=== PATIENT | female | born 2000 | race Caucasian/White ===

== ENCOUNTER 2024-05-06 16:32 | Emergency (ER) | payer OTHER, SELFPAY ==
[2024-05-06 16:35] VITALS: BP 130/82; PULSE 92; TEMP 36.9; O2SAT 98; BMI 41.4
--- NOTE | 2024-05-06 16:46 | ED.FEMALEGU1 ---
HPI - Female Genitourinary General Chief complaint: Urogenital-Female Stated complaint: UTI Time Seen by Provider: 05/06/24 16:38 Source: patient Mode of arrival: walk-in History of Present Illness HPI Narrative: 23-year-old female presents to the emergency department for dysuria and frequency. She is concerned she has a UTI, she has had them before. No back pain fever or vomiting. Symptoms started within the last day or 2. Related Data Home Medications ?Medication ?Instructions ?Recorded ?Confirmed testosterone cypionate 200 mg/mL 50 mg IM Q7D 05/06/24 05/06/24 intramuscular oil Previous Rx's ?Medication ?Instructions ?Recorded nitrofurantoin 100 mg PO BID 7 days #14 caps 05/06/24 monohydrate/macrocrystals 100 mg capsule (Macrobid) Allergies Allergy/AdvReac Type Severity Reaction Status Date / Time No Known Drug Allergies Allergy Verified 05/06/24 16:38 Review of Systems ROS Narrative A ten point review of systems is negative except as noted above. Exam Narrative Exam Narrative: Nurses note and vital signs reviewed and patient is not hypoxic. General: The patient appears well and in no apparent distress. Patient is resting comfortably on cart. Skin: Warm, dry, no pallor noted. There is no rash noted. Head: Normocephalic, atraumatic Eye: Normal conjunctiva, no drainage Ears, Nose, Mouth, and Throat: oral mucosa is moist. Nares patent. Cardiovascular: Regular Rate and Rhythm Respiratory: Patient is in no distress, no accessory muscle use, lungs are clear to auscultation, no wheezing, rales or rhonchi Back: non-tender, no CVA tenderness bilaterally to percussion. GI: Nontender Musculoskeletal: No joint swelling Neurological: Awake and alert Psychiatric: Cooperative Constitutional Vital Signs, click to edit/add: Last Vital Signs Temp 98.5 F 05/06/24 16:35 Pulse 92 H 05/06/24 16:35 Resp 16 05/06/24 16:35 BP 130/82 05/06/24 16:35 Pulse Ox 98 05/06/24 16:35 O2 Del Method Room Air 05/06/24 16:35 Course Vital Signs Vital signs: Vital Signs Temperature 98.5 F 05/06/24 16:35 Pulse Rate 92 H 05/06/24 16:35 Respiratory Rate 16 05/06/24 16:35 Blood Pressure 130/82 05/06/24 16:35 Pulse Oximetry 98 05/06/24 16:35 Oxygen Delivery Method Room Air 05/06/24 16:35 Temperature 98.5 F 05/06/24 16:35 Pulse Rate 92 H 05/06/24 16:35 Respiratory Rate 16 05/06/24 16:35 Blood Pressure 130/82 05/06/24 16:35 Pulse Oximetry 98 05/06/24 16:35 Oxygen Delivery Method Room Air 05/06/24 16:35 MDM - Female Genitourinary MDM Narrative Medical decision making narrative: UA shows UTI and she was started on Macrobid here and prescribed same. Treatment diagnosis and follow-up were discussed with the patient. Differential Diagnosis Differential diagnosis: Likely urinary tract infection and cystitis Lab Data Attestation: I reviewed the patient's lab results. Labs: Lab Results 05/06/24 Range/Units 16:40 Urine Color Yellow (YELLOW) Urine Clarity Sl cloudy (CLEAR) Urine pH 6.0 (5.0-9.0) Ur Specific [place] 1.020 (1.005-1.025) Urine Protein Trace (NEG/TRACE) mg/dL Urine Glucose (UA) Negative (NEGATIVE) mg/dL Urine Ketones Negative (NEGATIVE) mg/dL Urine Occult Blood Large A (NEGATIVE) Urine Nitrite Positive A (NEGATIVE) Urine Bilirubin Negative (NEGATIVE) Urine Urobilinogen 0.2 (0.2-1.0) EU/dL Ur Leukocyte Esterase Moderate A (NEGATIVE) Urine RBC 2-5 A (0-2) #/HPF Urine WBC 50-75 A (NONE SEEN) #/HPF Ur Squamous Epith Cells Few A (NONE/RARE) #/LPF Urine Crystals None seen (None Seen) #/HPF Urine Bacteria Large A (NONE SEEN) #/HPF Urine Casts None seen (NONE SEEN) #/LPF Urine Mucus Trace A (NONE SEEN) Ur Culture Indicated? Yes Urine HCG, Qual Negative (NEGATIVE) Discharge Plan Discharge Stand Alone Forms: Portal Instructions Chief Complaint: Urogenital-Female Clinical Impression: Urinary tract infection Patient Disposition: Home, Self-Care Prescriptions / Home Meds: New nitrofurantoin monohyd/m-cryst [Macrobid] 100 mg capsule 100 mg PO BID 7 Days Qty: 14 0RF Rx Instructions: must administer with a meal/food No Action testosterone cypionate 200 mg/mL oil 50 mg IM Q7D Print Language: [place] Instructions: Urinary Tract Infection in Women (ED) Referrals: Lindsey Hernandez NP [Primary Care Provider] - 1 week
[2024-05-06 17:24] LABS: Bilirubin Urine NEGATIVE (NEGATIVE); Blood Urine LARGE (NEGATIVE); Clarity Urine SL CLOUDY (CLEAR); Color Urine YELLOW (YELLOW); Glucose Urine UA NEGATIVE (NEGATIVE); Ketones Urine NEGATIVE (NEGATIVE); Leukocyte Esterase Urine MODERATE (NEGATIVE); Nitrite Urine POSITIVE (NEGATIVE); Protein Urine TRACE mg/dL (NEG/TRACE); Urobilinogen Urine 0.2 EU/dL (0.2-1.0)
[2024-05-06 17:30] LABS: HCG Qualitative Urine* NEGATIVE (NEGATIVE); Internal Control Within Normal Limits
[2024-05-06 17:34] LABS: WBC Urine 50-75 #/HPF (NONE SEEN)
[2024-05-06 17:35] LABS: Bacteria Urine LARGE #/HPF (NONE SEEN); Cast Seen? NONE SEEN #/LPF (NONE SEEN); Crystals Seen? None Seen #/HPF (None Seen); Mucus Urine TRACE (NONE SEEN); Squamous Epithelial Cell Urine FEW #/LPF (NONE/RARE); Urine Culture Indicated YES
[2024-05-06] MEDS: NITROFURANTOIN MONOHYD/MAC-CRST 100 MG CAPSULE PO (17:43)
[2024-05-06 17:47] VITALS: BP 120/58; PULSE 87; O2SAT 98
== END 2024-05-06 17:49 | disposition home or self-care (01) ==
PROVIDERS: Emergency Provider Emergency Medicine; PCP Nurse Practitioner Family
DX: N39.0 Urinary tract infection, site not specified (principal)
CPT/HCPCS: 81001; 84703; 87086; 99283

== ENCOUNTER 2024-11-01 12:02 | Outpatient (OUT) | payer OTHER, SELFPAY ==
--- OUTSIDE RECORDS SUMMARY | 2024-11-01 12:12 | XMS_ITS | CCD ---
Author Organization [facility] Care Team Providers Care Contract Mail Carrier Name Role Phone NO FAMILY, PHYSICIAN Primary Care Provider Unava ilable DO Lc Prajapati Emergency Provider [phone] MD Jenny Guajardo Admit Provider [phone] MD Jenny Guajardo Attending Provider MD Luis Plok Admit Provider [phone] MD Luis Polk Attending Provider JAMEL BAILEY Attending Unavailable JAMEL BAILEY Admitting Unavailable MARKER, DR SUTTON Consulting Unavailable JAMEL BAILEY Consulting Unavailable DAXA KING Consulting Unavailable MARINO PRITCHETT Admitting Unavailable DANAY NIEVES Consulting Unavailable DR CRISTAL MORGAN Primary Care Unavailable MARINO PRITCHETT Attending Unavailable Elizabeth Drew Attending Unavailable Elizabeth Drew Attending Unavailable Elizabeth Drew Attending Unavailable Elizabeth Drew Primary Care Physician [phone] Felicitas Osman MD Primary Care Provider Ralph - UC, PRABHJOT Barragan Attending Provider RalphPRABHJOT Attending Provider [phone] NO FAMILY, PHYSICIAN Primary Care Provider Unava ilable Suzanne, HOT ROLL INSPECTOR-BC Jasmin E Emergency Provider Bullimore Jasmin E Admitting Unavailable Bullimore Jasmin E Attending Unavailable NO FAMILY, PHYSICIAN Primary Care Unavailable Samra Rosas Admitting Unavailable Samra Rosas Attending Unavailable PROVIDER, UNKNOWN Admitting Unavailable FELICITAS OSMAN Primary Care Unavailable FELICITAS OSMAN Attending Unavailable PROVIDER, UNKNOWN Admitting Unavailable FELICITAS OSMAN Primary Care Unavailable FELICITAS OSMAN Attending Unavailable GLENYS Drew Attending Unavailable Medications Current Medications Medication Drug Class(es) Dates Sig (Normalized) Sig (Original) cephalexin 500 mg oral capsule (3 sources) Cephalosporin Antibacterial Start: 05-20-2024 End: 07-18-2024 take 500 mg by mouth twice daily Cephalexin Active 500 MG PO Twice daily 16 04July 18, 2024 5:27pm isopropyl alcohol 0.7 ml/ml medicated pad (1 source) Start: 03-30-2024 alcohol swabs 70 % pad Indications: Gender incongruence , Endocrine disorder Use as needed to clean skin surface. 100 Each 3 03/30/2024 Active metroNIDAZOLE 500 mg oral tablet (2 sources) Nitroimidazole Antimicrobial Start: 05-20-2024 take 500 mg by mouth twice daily Metronidazole Active 500 MG PO Twice daily 16 04May 20, 2024 12:00am Needle, Disp, 18G X 1 MISC (1 source) Start: 03-30-2024 End: 03-30-2025 Needle, Disp, 18G X 1 MISC Indications: Gender incongruence , Endocrine disorder 1 Each once weekly. 100 Each 3 03/30/2024 03/30/2025 Active Needle, Disp, 25G X 1 MISC (1 source) Start: 03-30-2024 Needle, Disp, 25G X 1 MISC Indications: Gender incongruence , Endocrine disorder 1 Each once weekly. 100 Each 3 03/30/2024 Active Acworth & Syringes (Easy Touch Syringe Barrel 1ml) MISC (1 source) Start: 03-30-2024 Acworth & Syringes (Easy Touch Syringe Barrel 1ml) MISC Indications: Gender incongruence , Endocrine disorder 1 Each once weekly. 100 Each 3 03/30/2024 Active phentermine hydrochloride 37.5 mg oral tablet (2 sources) Sympathomimetic Amine Anorectic Start: 03-14-2024 take 1 tablet by mouth once daily Phentermine HCl 37.5 MG TABS Take 1 Tablet by mouth daily. 03/14/2024 Active Start: 03-02-2024 take 1 tablet by armando th once daily phentermine 37.5 mg Tab 37.5 mg = 1 tab(s), Oral, Daily, # 30 tab(s), Refills(s) 0, Pharmacy: [id number], 151, cm, 03/02/24 10:03:00 EDT, Height/Length Dosing, 93.8, kg, 03/02/24 10:03:00 EDT, Weight Dosing Start Date: 03/02/24 Status: Ordered sharps container (1 source) Start: 03-30-2024 sharps contain er Indications: Gender incongruence , Endocrine disorder For used syringes, needles, and glass medicine bottles. 1 Each 3 03/30/2024 Active 1 ml testosterone cypionate 200 mg/ml injection (1 source) Androgen Start: 03-30-2024 End: 03-30-2025 testosterone cypionate (DEPO-TESTOSTERONE) 200 MG/ML injection Indications: Gender incongruence , Endocrine disorder Inject 0.25 mL into the muscle once weekly. Please throw away the remainder after opening. 12 mL 3 03/30/2024 03/30/2025 Active Completed/Discontinued Medications Medication Drug Class(es) Dates Sig (Normalized) Sig (Original) ARIPiprazole 30 mg oral tablet (17 sources) Atypical Antipsychotic Start: 04-10-2022 End: 05-20-2024 take 1 tablet by mouth once daily Aripiprazole (Abilify) 30 mg Tablet Discontinued 30 MG PO Daily June 28, 2022 10:44am May 20, 2024 10:05am Start: 01-23-2021 End: 04-10-2022 take 5 mg by mouth once daily Aripiprazole Discontinue d 5 MG PO Daily January 23, 2021 12:00am April 10, 2022 7:31pm busPIRone hydrochloride 5 mg oral tablet (11 sources) Start: 05-07-2022 End: 05-20-2024 take 5 mg by mouth twice daily Buspirone Discontinued 5 MG PO Twice daily 60 June 28, 2022 10:44am May 20, 2024 10:05am cariprazine 3 mg oral capsule (4 sources) Atypical Antipsychotic Start: 05-07-2022 End: 05-13-2022 take 1 capsule by mouth once daily Cariprazine (Vraylar) 3 mg Capsule Discontinued 3 MG PO Daily May 07, 2022 12:00am May 13, 2022 11:41am escitalopram 5 mg oral tablet (7 sources) Serotonin Reuptake Inhibitor Start: 05-13-2022 End: 05-20-2024 take 5 mg by mouth once daily in the morning Escitalopram Oxalate Discontinued 5 MG PO Every morning June 28, 2022 10:44am May 20, 2024 10:05am hydrOXYzine pamoate 50 mg oral capsule (14 sources) Antihistamine Start: 05-13-2022 End: 06-25-2022 take 50 mg by mouth every six hours Hydroxyzine Pamoate Discontinued 50 MG PO Q6H 60 May 13, 2022 12:00am June 25, 2022 12:39am Start: 01-01-2021 End: 04-10-2022 take 50 mg by mouth every six hours Hydroxyzine Pamoate Discontinued 50 MG PO Q6H 60 January 23, 2021 11:10am April 10, 2022 7:31pm traZODone hydrochloride 50 mg oral tablet (14 sources) Serotonin Reuptake Inhibitor Start: 05-13-2022 End: 06-25-2022 take 50 mg by mouth once daily at bedtime Trazodone Discontinued 50 MG PO Daily at bedtime May 13, 2022 12:00am June 25, 2022 12:39am Start: 01-01-2021 End: 04-10-2022 take 50 mg by mouth once daily at bedtime Trazodone Discontinued 50 MG PO Daily at bedtime January 23, 2021 11:10am April 10, 2022 7:31pm 24 hr venlafaxine 150 mg extended release oral capsule (10 sources) Serotonin and Norepinephrine Reuptake Inhibitor Start: 01-23-2021 End: 04-10-2022 take 150 mg by mouth once daily Venlafaxine Discontinued 150 MG PO Daily January 23, 2021 12:00am April 10, 2022 7:31pm Start: 01-01-2021 End: 01-23-2021 take 75 mg by mouth once daily Venlafaxine Discontinue d 75 MG PO Daily 15 January 01, 2021 12:00am January 23, 2021 11:11am Problems Problem Classification Problem Date Documented Date Episodic/Chronic Abdominal pain (1 source) Pelvic and perineal pain; Translations: [Pelvic and perineal pain] Onset: 07-18-2024 Episodic Anxiety disorders (6 sources) Posttraumatic stress disorder; Translations: [Post-traumatic stress disorder, unspecified] Onset: 05-08-2022 01-21-2021 Chronic Conditions associated with dizziness or vertigo (8 sources) Lightheadedness; Translations: [Dizziness and giddiness] 04-10-2022 Episodic Genitourinary symptoms and ill-defined conditions (3 sources) Dysuria; Translations: [Dysuria] Onset: 07-18-2024 05-20-2024 Episodic Immunizations and screening for infectious disease (1 source) Encounter for immunization; Translations: [ENCOUNTER FOR IMMUNIZATION] Onset: 05-08-2022 Episodic Miscellaneous mental health disorders (3 sources) Transsexualism; Translations: [Gender dysphoria] Onset: 05-08-2022 02-17-2024 Chronic Mood disorders (17 sources) Recurrent major depression; Translations: [Major depressive disorder, recurrent, unspecified] Onset: 05-08-2022 12-28-2020 Chronic Open wounds of head; neck; and trunk (1 source) Laceration of vagina; Translations: [Laceration without foreign body of vagina and vulva, initial encounter] 07-18-2024 Episodic Other female genital disorders (1 source) Abnormal uterine and vaginal bleeding, unspecified; Translations: [Abnormal uterine and vaginal bleeding, unspecified] Onset: 07-18-2024 Chronic Other nutritional; endocrine; and metabolic disorders (1 source) Body mass index 40+ - severely obese 03-02-2024 Chronic Other nutritional; endocrine; and metabolic disorders (1 source) Weight gain 03-02-2024 Episodic Other skin disorders (1 source) Acanthosis nigricans 02-17-2024 Episodic Suicide and intentional self-inflicted injury (12 sources) Suicidal thoughts; Translations: [Suicidal ideations] Onset: 05-08-2022 05-07-2022 Episodic Suicide and intentional self-inflicted injury (7 sources) Self-injurious behavior; Translations: [Self-harm] 05-07-2022 Superficial injury; contusion (1 source) Abrasion of left forearm, initial encounter; Translations: [ABRASION LEFT FOREARM INITIAL ENC] Onset: 05-08-2022 Episodic Unclassified (1 source) CONTACT W/AND (SUSP) EXPOS COVID-19; Translations: [CONTACT W/AND (SUSP) EXPOS COVID-19] Onset: 06-26-2022 Unclassified (1 source) PERSONAL HX SUICIDAL BEHAVIOR; Translations: [PERSONAL HX SUICIDAL BEHAVIOR] Onset: 05-08-2022 Unclassified (1 source) Patient encounter status 03-02-2024 Urinary tract infections (5 sources) Urinary tract infectious disease; Translations: [Urinary tract infection, site not specified] Onset: 05-20-2024 05-20-2024 Episodic Results Test Name Value Interpretation Reference Range Facility Telephone Encounteron 2024 Lead Athlete Authentication Interface Message Text Patient notified, verbalizes understanding. [facility] 2024 Lead Athlete Authentication Interface Message Text We can do blood test on day of appointment if his injections is every Wednesday or Wednesday. Felicitas Osman MD Pronouns: He/Him Family Medicine Normal [facility] Telephone Encounteron 2024 Lead Athlete Authentication Interface Message Text Situation: pt is calling Background: sts that he would not be able to come into town until his scheduled appt on 11/23 Wants to know if ok with Dr Osman to have his blood work done the day of his appt Assessment: please call pt back and advise Recommendation: see above Normal [facility] [employer] [facility] Patient Instructionson 08-24 Lead Athlete Authentication Interface Message Text Gender Affirming Surgery at [facility] offers a full range of surgeries for transgender patients. Facial feminization Chest surgery Bottom/lower surgery Learn more about gender affirmation surgeries at [facility] For assistance navigating the gender affirming surgery process, call or text our Trans Health Navigator Maren Chung at [phone]. You can always call the surgeons office directly to ask about their policies and procedures. Gender Surgery Support Group This is a virtual group for [facility] patients who are interested in, preparing for, and/or recovering from gender affirming surgery. The Gender Surgery Support Group will focus on supporting individuals at different stages in the surgery process. You will have the opportunity to GIVE and GET support to other members with shared experiences. We hope that this process will help you and other patients cope with stigma related to transition, promote healthy behaviors for surgery, and increase confidence in navigating the surgery process. Topics for group may include: WPATH letters, coping with barriers, social transition, family relationships, how to prepare for a surgery consult, and developing a recovery plan following surgery. Topics will be shaped by the needs of patients attending the group. The group occurs on and Wednesdays from 3-4pm starting in September of 2024. TELL YOUR PROVIDER IF YOU WOULD LIKE TO BE ADDED. Where do I even start? Step 1: Discuss a surgery referral with your primary care provider. Your primary care provider can assist you in deciding which surgeon you would like to consult with, and can place a surgery referral to the appropriate department. Step 2: Identify a behavioral health provider (e.g. psychiatrist, psychologists, counselor or therapist) who can complete a WPATH assessment (details below). If you don't have a provider, call [phone] and request a behavioral health appointment for a letter. NOTE: At [facility], surgeons do not require behavioral health letters before the consult for internal referrals (e.g. referrals from a [facility] medical provider). However, if you aren't sure if or when you will be ready for surgery - we recommend starting with behavioral health before you see a surgeon. Step 3: Schedule a consult with your preferred surgeon. NOTE: If a patient wishes to see a different surgeon after initial consult, a transfer of care requests can be made to any member of the treatment team (e.g. PCP, surgeon, behavioral health). Step 4: You will work with your treatment team to make sure you are ready for surgery. A summary of common requirements is below - note that it may vary based on surgery, surgeon, patient or insurance. Step 5: When the team determines you are ready, the surgeon's office will submit a pre-authorization to your insurance company. If insurance approves it, surgery will be scheduled. If insurance denies the claim, the team will discuss all the options with you - more details below . Information about Surgeries AND Surgeons [facility] Plastic Surgery Department number: Adonay Armenta MD (facial feminization, including tracheal shave, top surgery) - photos can be found at [email or web address] and [email or web address] Saul Toscano MD (top surgery) - photos can be found at [email or web address] and [email or web address] Jair Joshi MD (top surgery) - photos available at consult Chantal Montgomery MD (top surgery) Lobito Valenzuela MD (top surgery) Note: The plastic surgeon may ask you to take photos of your chest prior to the appointment. If this is difficult for you, let your treatment team know. [facility] OBGYN Department Number: Kike Kumar MD (Hysterectomy, minimally invasive) Angella Coker (Hysterectomy, minimally invasive) Stephen Welsh MD (Hysterectomy) Chantal Ramires (OBGYN) Beatris Elkins MD (gynecology-oncology) [facility] Urology Department Number: , option 1 Cristopher Bowie MD (Vaginoplasty, Phalloplasty, Metoidioplasty, Orchiectomy, and more) - [email or web address] - call [facility] directly at [phone] Milan Levy MD (Orchiectomy only) - [facility] Urology Deisy Mullins MD (Orchiectomy only) - [facility] Urology Dr. Suyapa King MD, PhD (Orchiectomy only) -- [facility] Urology [facility] Ear, Nose AND Throat Department Number: [phone] Dr. Murillo - Tracheal shave For vocal chord surgery, we refer outside of [facility]: Ernie Arredondo MD [address] [place] [address] [email or web address] Be Informed It is important to do research about the procedure you are interested in - the risks, the benefits, and the recovery. Good resources for research are: [email or web address]/en [email or web address] ch (more content not included)... Normal The [facility] Progress Noteson 08-24-2024 Lead Athlete Authentication Interface Message Text During this visit the vaccine(s) was: Administered Provider received consent from patient/parent/patient visitor services representative for immunization(s) as ordered, questionnaire completed and VIS educational handouts reviewed with patient/parent/patient visitor services representative who denies contraindications Double identification of patient completed with patient/parent/patient visitor services representative using name and prior to administration, and patient tolerated immunization(s) administration without incident. Normal [facility] [employer] [facility] Lead Athlete Authentication Interface Message Text Chief Complaint Patient presents with Medicine Follow Up HPI: Mahin Gallagher 23 year old adult presenting for Gender incongruence - preferred name: Casper - pronouns: he/him - noticed hair growth, voice changes, easier to gain muscle - getting more acne, especially on the back, does not feel need to treat - happy with where he is at - last injection times AM - Patient denied Sx of side effects of high dose testosterone including chest pain, SOB, palpitations, calf pain or swelling, loss of peripheral vision, RUQ pain, nausea, emesis, acholic stools, dark tea colored urine, worsening headaches. Current Outpatient Medications Medication Sig Dispense Refill Needle, Disp, 18G X 1 MISC 1 Each once weekly. 100 Each 3 Needle, Disp, 25G X 1 MISC 1 Each once weekly. 100 Each 3 Acworth AND Syringes (Easy Touch Syringe Barrel 1ml) MISC 1 Each once weekly. 100 Each 3 testosterone cypionate (DEPO-TESTOSTERONE) 200 MG/ML injection Inject 0.25 mL into the muscle once weekly. Please throw away the remainder after opening. 12 mL 3 alcohol swabs 70 % pad Use as needed to clean skin surface. 100 Each 3 sharps container For used syringes, needles, and glass medicine bottles. 1 Each 3 Phentermine HCl 37.5 MG TABS Take 1 Tablet by mouth daily. (Patient not taking: Reported on 08/24/2024) No current facility-administered medications for this visit. Past Medical History: Diagnosis Date Bipolar disorder in full remission (HCC) Past Surgical History: Procedure Laterality Date NO PAST SURGICAL HISTORY Family History Problem Relation Age of Onset Bipolar Disorder Mother Good health Father Good health Sister Diabetes Mellitus Maternal Grandmother Social History Socioeconomic History Marital status: Unknown Tobacco Use Smoking status: Never Passive exposure: Past Smokeless tobacco: Never Vaping Use Vaping status: Never Used Substance and Sexual Activity Alcohol use: Not Currently Drug use: Not Currently BP 122/75 Pulse 75 Temp 99.5 ???F (37.5 ???C) (Temporal) Resp 20 Wt 208 lb 6.4 oz (94.5 kg) SpO2 99% BMI 42.64 kg/m??? Vital signs reviewed Exam: Constitutional Alert, Awake, No acute distress HENT No sign of trauma Eyes No discharge, Nonicteric, Noninjected Lungs Clear to auscultation, No wheezing, No rales, No respiratory distress, No cyanosis Heart Regular rate and rhythm, No murmurs, No rubs, No gallops Abdomen Soft, Nondistended, Nontender, No masses, No organomegaly, Normal bowel sounds, No rebound Extremities Full ROM all 4 extremities, No edema Neuro Alert normally oriented, Normal speech Skin Warm, Dry Psych Normal affect, Cooperative A/P: Mahin Gallagher 23 year old adult presenting for 1. Gender incongruence (Primary) 2. Endocrine disorder Pt has consistent, persistent and insistent gender identification as male. Monitor hormone lvls. Advised blood draw mid-point between dose. Adjust hormone dose as needed pending hormone lvl. - TESTOSTERONE, TOTAL; Future - ESTRADIOL, SENSITIVE; Future - COMPLETE BLOOD COUNT; Future 3. Encounter for immunization - INFLUENZA VACCINE, TRIVALENT, SPLIT, PRESERVATIVE FREE, IM USE (0.5ML,IM,ONCE) Follow up in about 3 months (around 11/24/2024). Felicitas Osman MD Pronouns: He/Him Family Medicine Normal [facility] [employer] [facility] Bacteria [Presence] in Urine by AutomatedOrdered By: Jasmin Palacios on 07-18-2024 Bacteria Auto Ql (U) None seen [HPF] None Seen [facility] Bilirubin Test strip Ql (U)O rdered By: Jasmin Palacios on 07-18-2024 Bilirubin Ql (U) Negative Negative [facility] Chlamydia/GC Amplificationon 07-18-2024 Chlamydia Trachomotis, REID Negative Normal Negative [facility] Comment on above: Order Comment: SOURC E OF SPECIMEN: Genital Performed By: #### F ZURI Murry CUU, UHCG #### [address] #### GCCHLAMAMP #### [facility] , Neisseria Gonorrhoeae, REID Negative Normal Negative [facility] Comment on above: Order Comment: SOURC E OF SPECIMEN: Genital Result Comment: Perf ormed at: =G - [facility] [address] [place] [id number] [employer]: Dian Edmondson MD, Phone: [phone] PERFORMED BY: [place] [address] PATHOLOGIST BROKER RUBÉN HIGGINS M.D. Performed By: #### F S, ADDONUAPLUS, CUU, UHCG #### [place] [address] [place] #### GCCHLAMAMP #### [facility] , Color of Urine by AutoOrdere d By: Jasmin Palacios on 07-18-2024 Color (U) Light-yellow Normal Yellow [facility] Comment on above: Order Comment: Name Collection Type:: Clean-Voided Midstream Performed By: #### F S, ADDONUAPLUS, CUU, UHCG #### [facility] [address] [place] [address] [place] #### GCCHLAMAMP #### [facility] , Dipstick and Microscopicon 1 Bacteria,Urine None Seen Normal None Seen [facility] Comment on above: Order Comment: Name Collection Type:: Clean-Voided Midstream Performed By: #### F S, ADDONUAPLUS, CUU, UHCG #### [facility] [address] [place] [address] [place] #### GCCHLAMAMP #### [facility] , Bilirubin,Urine Negative Normal Negative [facility] Comment on above: Order Comment: Name Collection Type:: Clean-Voided Midstream Performed By: #### F S, ADDONUAPLUS, CUU, UHCG #### [facility] [address] [place] [address] [place] #### GCCHLAMAMP #### [facility] , Glucose Ql (U) Normal Normal Normal [facility] Comment on above: Order Comment: Name Collection Type:: Clean-Voided Midstream Performed By: #### F S, ADDONUAPLUS, CUU, UHCG #### [address] #### GCCHLAMAMP #### [facility] , Hyaline Casts,Urine 0-8 Normal 0-8 [facility] Comment on above: Order Comment: Name Collection Type:: Clean-Voided Midstream Performed By: #### F S, ADDONUAPLUS, CUU, UHCG #### [facility] [address] [place] [address] #### GCCHLAMAMP #### [facility] , Mucus,Urine Rare Normal [facility] Comment on above: Order Comment: Name Collection Type:: Clean-Voided Midstream Performed By: #### F S, ADDONUAPLUS, CUU, UHCG #### [facility] [address] [place] [address] #### GCCHLAMAMP #### [facility] , Nitrite,Urine Negative Normal Negative [facility] Comment on above: Order Comment: Name Collection Type:: Clean-Voided Midstream Performed By: #### F S, ADDONUAPLUS, CUU, UHCG #### [address] #### GCCHLAMAMP #### [facility] , Occult Blood,Urine 1+ High Negative [facility] Comment on above: Order Comment: Name Collection Type:: Clean-Voided Midstream Performed By: #### F S, ADDONUAPLUS, CUU, UHCG #### [facility] [address] [place] [address] #### GCCHLAMAMP #### [facility] , Protein,Urine Trace High Negative [facility] Comment on above: Order Comment: Name Collection Type:: Clean-Voided Midstream Performed By: #### F S, ADDONUAPLUS, CUU, UHCG #### [address] #### GCCHLAMAMP #### [facility] , RBC,Urine 20-49 High 0-4 [facility] Comment on above: Order Comment: Name Collection Type:: Clean-Voided Midstream Performed By: #### F S, ADDONUAPLUS, CUU, UHCG #### [address] #### GCCHLAMAMP #### [facility] , Specificy [place],Urine 1.031 High 1.001-1.03 0 [facility] Comment on above: Order Comment: Name Collection Type:: Clean-Voided Midstream Performed By: #### F S, ADDONUAPLUS, CUU, UHCG #### [address] #### GCCHLAMAMP #### [facility] , Squamous Epithelial Cell,Urine 1-2 Normal 0-2 [facility] Comment on above: Order Comment: Name Collection Type:: Clean-Voided Midstream Performed By: #### F S, ADDONUAPLUS, CUU, UHCG #### [address] #### GCCHLAMAMP #### [facility] , Urobilinogen,Urine Normal Normal Normal [facility] Comment on above: Order Comment: Name Collection Type:: Clean-Voided Midstream Performed By: #### F S, ADDONUAPLUS, CUU, UHCG #### [facility] [address] [place] [address] #### GCCHLAMAMP #### [facility] , WBC CLUMP, Urine Occasional High None Seen [facility] Comment on above: Order Comment: Name Collection Type:: Clean-Voided Midstream Performed By: #### F S, ADDONUAPLUS, CUU, UHCG #### [facility] [address] [place] [address] #### GCCHLAMAMP #### [facility] , WBC,Urine 20-49 High 0-4 [facility] Comment on above: Order Comment: Name Collection Type:: Clean-Voided Midstream Performed By: #### F S, BERNARDINO KEATINGU, UHCG #### [facility] [address] [place] [address] #### GCCHLAMAMP #### [facility] , Epithelial cells.squamous [# /area] in Urine sediment by Automated countOrdered By: Jasmin Bullimore on 07-18-2024 Epithelial cells.squamous Auto (Urine sed) [#/Area] 1-2 [HPF] 0-2 [facility] Erythrocytes [#/area] in Uri ne sediment by Automated countOrdered By: Jasmin Bullimore on 07-18-2024 RBC Auto (Urine sed) [#/Area] 20-49 [HPF] High 0-4 [facility] Fungal Smearon 07-18-2024 Fungal Smear Fungus Smear Results No Yeast Like Elements Seen No Fungal Like Elements Seen -- Trichomonas Screen No Trichomonas Seen Trich Reference Reference range = None Seen PERFORMED BY: [place] [address] PATHOLOGIST BROKER RUBÉN HIGGINS M.D. Normal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 PAP Note Pt notified. Normal [facility] PAP [id number] 03-02-2024 Gynecological Body Site CERVIX Normal [facility] Comment on above: Performed By: #### 1 [id number] #### [facility] [address] [place] [address] Ambulatory Visit Summaryon 0 02-17-2024 Ambulatory Visit Summary MAHIN GALLAGHER :2000 Visit Date:02/17/2024 Ambulatory Visit Instructions Your Diagnosis Acanthosis nigricans Gender identity disorder, unspecified BMI 40.0-44.9, adult Non-smoker Your Care Team Attending Physician - Elizabeth Shahid Primary Care Physician - Elizabeth Shahid Discharge Vitals Heart Rate (Peripheral) 60 Respiratory Rate 16 Blood Pressure 116/74 Height 149.2 cm Height 59 in Weight 93.90 kg Weight 206.58 lb BMI 42.18 What to do next Scheduled Follow-Up Appointments 2023 10:00 AM EDT With: Elizabeth Shahid Where: [facility] [place] [facility] Medicine Office/Clini c Noteon 02-17-2024 Family Medicine Office/Clinic Note HPI Staff Mahin is a 23 year old presenting to establish care Establish Care: History: Any previous diagnosis: Bipolar History of seeing any specialist: When was your last doctors visit: Last provider: never had one Any recent labs: Health Maintenance UTD: Colonoscopy: no Mammogram: no Pelvic/Pap: never had one Acute: Current issues/complaints: Onset: 2-3 months has noticed arm pits and back on neck dark spot and does itch. Has been using Vaseline for neck and nothing for arm pits. Pt states she is wanting to transition from a woman to a male and is looking for advice where to start the process. History of Present Illness pt presents today to establish care. has dark areas of skin under arms and on neck Physical Exam Vitals & Measurements HR: 60(Peripheral) RR: 16 BP: 116/74 SpO2: 99% HT: 59 in HT: 149.2 cm WT: 93.90 kg WT: 206.58 lb BMI: 42.18 General: alert, no acute distress ENMT: oral mucosa moist, no pharyngeal erythema or exudate Cardiovascular: regular rate and rhythm, normal peripheral perfusion Respiratory: Lungs CTA, respirations non labored Extremities: no deformity, no trauma Neurological: oriented x 4, LOC appropriate for age, CN II-XII intact, motor strength equal & normal bilaterally, speech normal Assessment/Plan 1. Acanthosis nigricans (L83: Acanthosis nigricans) pt is concerned about dark spots on neck and under arms. discussed acanthosis nigricans at length. discussed PCOS as well. 2. Gender identity disorder, unspecified (F64.9: Gender identity disorder, unspecified) pt would like to transition into male. information for [facility] in [place] provided. discussed her desire as far as breast, uterine, cervical removal, penial implant etc. [place] [facility] to discuss further options. pt will return for well woman pap test. 3. BMI 40.0-44.9, adult (Z68.41: Body mass index [BMI] 40.0-44.9, adult) BMI education complete 4. Non-smoker (Z78.9: Other specified health status) continue not smoking Follow-up No qualifying data available Problem List/Past Medical History Ongoing Acanthosis nigricans Gender identity disorder, unspecified Historical No qualifying data Medications No active medications Allergies No Known Allergies Social History Tobacco Never (less than 100 in lifetime) Tobacco Use:. Never Smokeless Tobacco Use:. Household tobacco concerns: No., 02/17/2024 Family History Diabetes mellitus type 2: Mother. Normal [facility] Comment on above: Result Comment: Elec tronically Signed By: Elizabeth Shahid\.br\Date and Time Signed: 02/17/24 13:38 EDT Telephone Encounteron 2023 [employer] Authentication Interface Message Text Reached pt via telephone and assisted with scheduling appt to [facility] care with Dr Osman [facility]. Advised questions regarding transitioning must be discussed at time of appt. Advised pt to bring photo ID and insurance card to appointment Normal [employer]lete Authentication Interface Message Text Pt called [facility], they will be a new pt with us soon but before further, they have a few questions for the nurses. Pt has [facility] and would like any [facility] provider that accepts. They ask How would they get started with transitioning from female to male? What are their physical requirements for transitioning? Pls give pt a call back at [phone] Thank you Normal [employer] Cholesterol [Mass/volume] in Serum or PlasmaOrdered By: Luis Polk on 06-26-2022 Cholesterol [Mass/Vol] 159 mg/dL 140-200 [facility] Comment on above: Chol less than 200 m g/dl low risk Chol 201-239 mg/dl borderline risk Chol 240 mg/dl and greater high risk Cholesterol in LDL Calc [Mas s/Vol]Ordered By: Luis Polk on 06-26-2022 Cholesterol in LDL [Mass/Vol] 87 mg/dL 0-100 [facility] Comment on above: LDL ATP III CLASSIFI CATION LDL less than 100 mg/dL Optimal LDL 100-129 mg/dL Near or above optimal LDL 130-159 mg/dL Borderline high LDL 160-189 mg/dL High LDL greater than 189 mg/dL Very high Cholesterol in VLDL Calc [Ma ss/Vol]Ordered By: Luis Polk on 06-26-2022 Cholesterol in VLDL [Mass/Vol] 29 mg/dL [facility] No Panel InformationOrdered By: Luis Polk on 06-26-2022 25-Hydroxy Vitamin D Total 20.1 ng/mL 30-100 [facility] Comment on above: VITAMIN D STATUS 25( [place])VITAMIN D RANGE (ng/mL) Deficient <20 Insufficient 20 to <30 Sufficient 30 to 100 Reference: Jimbo MF,Bertha BUNDY, Kumar MENDIOLA, et al. Evaluation,treatment, and prevention of vitamin D deficiency; an Endocrine Society clinical practice guideline. JCEM. 2010; 96(7):1911-30. Serum or plasma high density lipoprotein (HDL) cholesterol measurementOrdered By: Luis Polk on 06-26-2022 Cholesterol in HDL [Mass/Vol] 43 mg/dL 35-85 [facility] Comment on above: HDL CHOL ATP-III CLA SSIFICATION Cardiovascular Risk HDL > or equal to 60 mg/dL LOW HDL < 40 mg/dL HIGH Serum or plasma total choles terol/high density lipoprotein (HDL) cholesterol mass ratOrdered By: Luis Polk on 06-26-2022 Cholesterol.total/Chol esterol in HDL [Mass ratio] 3.7 {ratio} <5.0 [facility] TSH DL <= 0.005 mIU/L QnOrde red By: Luis Polk on 06-26-2022 TSH Qn 1.39 m[IU]/L 0.45-5.33 [facility] Triglyceride [Mass/volume] i n Serum or PlasmaOrdered By: Luis Polk on 06-26-2022 Triglyceride [Mass/Vol] 145 mg/dL 35-149 [facility] Comment on above: TRIG ATP III CLASSIF ICATION TRIG less than 150 mg/dL Normal TRIG 150-199 mg/dL Borderline high TRIG 200-500 mg/dL High TRIG greater than 500 mg/dL Very high Standard traceable to the Center for Disease Conrtrol and Prevention (CDC) test method. ACETAMINOPHENon 06-24-2022 Acetaminophen [Mass/Vol] ug/mL Critically low 10.0-30.0 [facility] Comment on above: Performed By: #### E TH, ACET, CMP, SALYC #### [facility] [address] [place] [address] Dr. Surendra Yip CBC AUTO DIFFon 06-24-2022 BASO # 0.1 103/ul Normal 0.0-0.1 [facility] Comment on above: Performed By: #### C BC #### [facility] [address] [address] [address] Surendra Yip Basophils/100 WBC (Bld) 0.5 % Normal 0.2-2.0 [facility] Comment on above: Performed By: #### C BC #### [facility] [address] [place] [address] Dr. Surendra Yip EO # 0.2 103/ul Normal 0.0-0.7 [facility] Comment on above: Performed By: #### C BC #### [facility] [address] [address] [address] Surendra Yip Eosinophils/100 WBC (Bld) 1.4 % Normal 0.9-7.0 [facility] Comment on above: Performed By: #### C BC #### [facility] [address] [address] [address] Surendra Yip Erythrocyte distribution width (RBC) [Ratio] 18.0 % Critically high 11.0-15.0 [facility] Comment on above: Performed By: #### C BC #### [facility] [address] [place] [address] Dr. Surendra Yip Hematocrit (Bld) [Volume fraction] 39.9 % Normal 36.0-48.0 [facility] Comment on above: Performed By: #### C BC #### [facility] [address] [place] [address] Dr. Surendra Yip Hemoglobin (Bld) [Mass/Vol] 12.0 g/dL Normal 12.0-16.0 [facility] Comment on above: Performed By: #### C BC #### [facility] [address] [address] [address] Surendra Yip IG # 0.06 10e3/ul Critically high 0.00-0.03 [facility] Comment on above: Performed By: #### C BC #### [facility] [address] [address] [address] Surendra Yip IG % 0.5 % Normal 0.0-0.5 [facility] Comment on above: Performed By: #### C BC #### [facility] [address] [address] [address] Surendra Yip LYMPH # 2.5 103/ul Normal 1.2-3.8 [facility] Comment on above: Performed By: #### C BC #### [facility] [address] [place] [address] Dr. Surendra Yip Lymphocytes/100 WBC (Bld) 22.1 % Normal 20.5-60.0 [facility] Comment on above: Performed By: #### C BC #### [facility] [address] [place] [address] Dr. Surendra Yip MANUAL DIFF REQ NO Normal [facility] Comment on above: Performed By: #### C BC #### [facility] [address] [place] [address] Dr. Surendra Yip MCH (RBC) [Entitic mass] 23.0 pg Critically low 26.7-34.0 [facility] Comment on above: Performed By: #### C BC #### [facility] [address] [place] [address] Dr. Surendra Yip MCHC (RBC) [Mass/Vol] 30.1 g/dL Normal 29.9-35.2 [facility] Comment on above: Performed By: #### C BC #### [facility] [address] [place] [address] Dr. Surendra Yip MCV (RBC) [Entitic vol] 76.4 fL Critically low 81.0-99.0 [facility] Comment on above: Performed By: #### C BC #### [facility] [address] [address] [address] Surendra Yip MONO # 1.1 103/ul Critically high 0.3-0.8 [facility] Comment on above: Performed By: #### C BC #### [facility] [address] [address] [address] Surendra Yip Monocytes/100 WBC (Bld) 9.7 % Normal 1.7-12.0 [facility] Comment on above: Performed By: #### C BC #### [facility] [address] [address] [address] Surendra Yip NEUT # 7.4 103/ul Critically high 1.4-6.5 [facility] Comment on above: Performed By: #### C BC #### [facility] [address] [address] [address] Surendra Yip Neutrophils/100 WBC (Bld) 65.8 % Normal 43.0-75.0 [facility] Comment on above: Performed By: #### C BC #### [facility] [address] [address] [address] Surendra Yip Platelet mean volume (Bld) [Entitic vol] 9.9 fL Normal 9.5-13.5 [facility] Comment on above: Performed By: #### C BC #### [facility] [address] [address] [address] Surendra Yip PLT 404 103/ul Normal 150-450 [facility] Comment on above: Performed By: #### C BC #### [facility] [address] [address] [address] Surendra Yip RBC 5.22 106/ul Normal 4.20-5.40 [facility] Comment on above: Performed By: #### C BC #### [facility] [address] [address] [address] Surendra Yip WBC 11.3 103/ul Critically high 4.0-11.0 [facility] Comment on above: Performed By: #### C BC #### [facility] [address] [place] [address] Dr. Surendra Yip Covid-19 PCR ([facility])on 06-05 SARS-CoV-2 (COVID-19) RNA REID+probe Ql (Unsp spec) Not detected Normal NOT DETECTED [facility] Comment on above: Result Comment: When diagnostic testing is negative, the possibility of a false negative should be considered in the context of a patient's recent exposures and the presence of clinical signs and symptoms consistent with SARS-CoV-2. This test is not yet approved or cleared by the [place] FDA. When there are no FDA-approved or cleared tests available, and other criteria are met, FDA can make tests available under an emergency access mechanism called an Emergency Use Authorization (EUA). The EUA for this test is supported by the [employer] of Health and Human Service's declaration that circumstances exist to justify the emergency use of in vitro diagnostics for the detection and/or diagnosis of the virus that causes COVID-19. This EUA will remain in effect for the duration of the COVID-19 declaration justifying emergency of IVDs, unless it is terminated or revoked by the FDA (after which the test may no longer be used). Performed By: #### C VDTBH #### [facility] [address] [place] [address] Dr. Surendra Yip DRUG SCREEN RAPID (URINE)on 06-24-2022 AMP Negative Normal NEGATIVE [facility] Comment on above: Performed By: #### C BC #### [facility] [address] [place] [address] Dr. Surendra Yip BAR Negative Normal NEGATIVE [facility] Comment on above: Performed By: #### C BC #### [facility] [address] [place] [address] Dr. Surendra Yip BUP Negative Normal NEGATIVE [facility] Comment on above: Performed By: #### C BC #### [facility] [address] [place] [address] Dr. Surendra Yip BZO Negative Normal NEGATIVE [facility] Comment on above: Performed By: #### C BC #### [facility] [address] [place] [address] Dr. Surendra Yip IRAIDA Negative Normal NEGATIVE [facility] Comment on above: Performed By: #### C BC #### [facility] [address] [place] [address] Dr. Surendra Yip CUT-OFFS SEE BELOW Normal [facility] Comment on above: Result Comment: AMP (Amphetamine): 500ng/mL, BAR (Barbituates): 200 ng/mL, BZO (Benzodiazepines): 150 ng/mL, BUP (Buprenorphine): 10 ng/mL, IRAIDA (Cocaine): 150 ng/mL, mAMP (Methamphetamine): 500 ng/mL, MTD (Methadone): 200 ng/mL, OPI (Opiates): 100 ng/mL, OXY (Oxycodone): 100 ng/mL, PCP (Phencyclidine): 25 ng/mL, PPX (Propoxyphene): 300 ng/mL, THC (Cannabinoids): 50 ng/mL, TCA (Trycyclic Antidepressants): 300 ng/mL Performed By: #### C BC #### [facility] [address] [place] [address] Dr. Surendra Yip DRUG CUT HEADER DRUG CLASS TEST SYST EM CUT-OFF CONCENTRATIONS ARE FOLLOWS: Normal [facility] Comment on above: Performed By: #### C BC #### [facility] [address] [place] [address] Dr. Surendra Yip mAMP Negative Normal NEGATIVE [facility] Comment on above: Performed By: #### C BC #### [facility] [address] [place] [address] Dr. Surendra Yip MTD Negative Normal NEGATIVE [facility] Comment on above: Performed By: #### C BC #### [facility] [address] [place] [address] Dr. Surendra Yip OPI Negative Normal NEGATIVE [facility] Comment on above: Performed By: #### C BC #### [facility] [address] [place] [address] Dr. Surendra Yip OXY Negative Normal NEGATIVE [facility] Comment on above: Performed By: #### C BC #### [facility] [address] [place] [address] Dr. Surendra Yip PCP Negative Normal NEGATIVE [facility] Comment on above: Performed By: #### C BC #### [facility] [address] [address] [address] Surendra Yip PPX Negative Normal NEGATIVE [facility] Comment on above: Performed By: #### C BC #### [facility] [address] [place] [address] Dr. Surendra Yip TCA Negative Normal NEGATIVE [facility] Comment on above: Performed By: #### C BC #### [facility] [address] [place] [address] Dr. Surendra Yip THC Negative Normal NEGATIVE [facility] Comment on above: Performed By: #### C BC #### [facility] [address] [place] [address] Dr. Surendra Yip ETHANOL (BLD ALC)on 06-24-20 22 ALC NOTE NOTE: 80 mg/dl is th e legal limit for a blood alcohol level Normal [facility] Comment on above: Performed By: #### E TH, ACET, CMP, SALYC #### [facility] [address] [place] [address] Dr. Surendra Yip Ethanol [Mass/Vol] mg/dL Normal [facility] Comment on above: Performed By: #### E TH, ACET, CMP, SALYC #### [facility] [address] [place] [address] Dr. Surendra Yip URon 06-24-2022 , QUAL Negative Normal NEGATIVE [facility] Comment on above: Performed By: #### C BC #### [facility] [address] [place] [address] Dr. Surendra Yip PROF 14(COMP METB)on 022 Albumin [Mass/Vol] 3.8 g/dL Normal 3.4-5.0 [facility] Comment on above: Performed By: #### C BC #### [facility] [address] [place] [address] Dr. Surendra Yip Albumin/Globulin [Mass ratio] 0.9 {ratio} Normal [facility] Comment on above: Performed By: #### C BC #### [facility] [address] [place] [address] Dr. Surendra Yip ALP [Catalytic activity/Vol] 87 U/L Normal 46-116 [facility] Comment on above: Performed By: #### C BC #### [facility] [address] [place] [address] Dr. Surendra Yip ALT [Catalytic activity/Vol] 29 U/L Normal 14-59 [facility] Comment on above: Performed By: #### C BC #### [facility] [address] [place] [address] Dr. Surendra Yip Anion gap [Moles/Vol] 11.7 mmol/L Normal Th [facility] Comment on above: Performed By: #### C BC #### [facility] [address] [place] [address] Dr. Surendra Yip AST [Catalytic activity/Vol] 15 U/L Normal 15-37 [facility] Comment on above: Performed By: #### C BC #### [facility] [address] [place] [address] Dr. Surendra Yip Bilirubin [Mass/Vol] 0.2 mg/dL Normal 0.2-1.0 [facility] Comment on above: Performed By: #### C BC #### [facility] [address] [place] [address] Dr. Surendra Yip Calcium [Mass/Vol] 8.7 mg/dL Normal 8.5-10.1 [facility] Comment on above: Performed By: #### C BC #### [facility] [address] [place] [address] Dr. Surendra Yip Chloride [Moles/Vol] 106 mmol/L Normal 98-107 [facility] Comment on above: Performed By: #### C BC #### [facility] [address] [place] [address] Dr. Surendra Yip CO2 [Moles/Vol] 25.2 mmol/L Normal 21.0-32.0 [facility] Comment on above: Performed By: #### C BC #### [facility] [address] [place] [address] Dr. Surendra Yip Creatinine [Mass/Vol] 1.05 mg/dL Critically high 0.55-1.02 [facility] Comment on above: Performed By: #### C BC #### [facility] [address] [place] [address] Dr. Surendra Yip EGFR-AF FRENCH >60 Normal >=60 [facility] Comment on above: Performed By: #### C BC #### [facility] [address] [address] [address] Surendra Yip EGFR-NON AF FRENCH >60 Normal >=60 [facility] Comment on above: Performed By: #### C BC #### [facility] [address] [place] [address] Dr. Surendra Yip Globulin (S) [Mass/Vol] 4.1 g/dL Normal [facility] Comment on above: Performed By: #### C BC #### [facility] [address] [place] [address] Dr. Surendra Yip Glucose [Mass/Vol] 87 mg/dL Normal 74-106 [facility] Comment on above: Performed By: #### C BC #### [facility] [address] [place] [address] Dr. Surendra Yip Potassium [Moles/Vol] 3.9 mmol/L Normal 3.5-5.1 [facility] Comment on above: Performed By: #### C BC #### [facility] [address] [place] [address] Dr. Surendra Yip Protein [Mass/Vol] 7.9 g/dL Normal 6.4-8.2 [facility] Comment on above: Performed By: #### C BC #### [facility] [address] [place] [address] Dr. Surendra Yip Sodium [Moles/Vol] 139 mmol/L Normal 136-145 [facility] Comment on above: Performed By: #### C BC #### [facility] [address] [place] [address] Dr. Surendra Yip Urea nitrogen [Mass/Vol] 20.0 mg/dL Critically high 6.4-19.3 [facility] Comment on above: Performed By: #### C BC #### [facility] [address] [address] [address] Surendra Yip Urea nitrogen/Creatinine [Mass ratio] 19.0 mg/mg Normal [facility] Comment on above: Performed By: #### C BC #### [facility] [id number] Surendra Yip SALICYLATEon 06-24-2022 SALICYLATE <2.8 Normal <=19.9 [facility] Comment on above: Performed By: #### E TH, ACET, CMP, SALYC #### [facility] [address] [address] [address] Surendra Yip Cholesterol [Mass/volume] in Serum or PlasmaOrdered By: Galindo Guajardo on 05-07-2022 Cholesterol [Mass/Vol] 122 mg/dL 140-200 [facility] Comment on above: Chol less than 200 m g/dl low risk Chol 201-239 mg/dl borderline risk Chol 240 mg/dl and greater high risk Cholesterol in LDL Calc [Mas s/Vol]Ordered By: Galindo Guajardo on 05-07-2022 Cholesterol in LDL [Mass/Vol] 67 mg/dL 0-100 [facility] Comment on above: LDL ATP III CLASSIFI CATION LDL less than 100 mg/dL Optimal LDL 100-129 mg/dL Near or above optimal LDL 130-159 mg/dL Borderline high LDL 160-189 mg/dL High LDL greater than 189 mg/dL Very high Cholesterol in VLDL Calc [Ma ss/Vol]Ordered By: Galindo Guajardo on 05-07-2022 Cholesterol in VLDL [Mass/Vol] 16 mg/dL [facility] No Panel InformationOrdered By: Galindo Gujaardo on 05-07-2022 25-Hydroxy Vitamin D Total 30.3 ng/mL 30-100 [facility] Comment on above: VITAMIN D STATUS 25( OH)VITAMIN D RANGE (ng/mL) Deficient <20 Insufficient 20 to <30 Sufficient 30 to 100 Reference: Jimbo MF,Bertha NC, Kumar MENDIOLA et al. Evaluation,treatment, and prevention of vitamin D deficiency; an Endocrine Society clinical practice guideline. JCEM. 2010; 96(7):1911-30. Serum or plasma high density lipoprotein (HDL) cholesterol measurementOrdered By: Galindo Guajardo on 05-07-2022 Cholesterol in HDL [Mass/Vol] 38 mg/dL 35-85 [facility] Comment on above: HDL CHOL ATP-III CLA SSIFICATION Cardiovascular Risk HDL > or equal to 60 mg/dL LOW HDL < 40 mg/dL HIGH Serum or plasma total choles terol/high density lipoprotein (HDL) cholesterol mass ratOrdered By: Galindo Guajardo on 05-07-2022 Cholesterol.total/Chol esterol in HDL [Mass ratio] 3.2 {ratio} <5.0 [facility] TSH DL <= 0.005 mIU/L QnOrde red By: Galindo Guajardo on 05-07-2022 TSH Qn 1.79 m[IU]/L 0.45-5.33 [facility] Triglyceride [Mass/volume] i n Serum or PlasmaOrdered By: Galindo Guajardo on 05-07-2022 Triglyceride [Mass/Vol] 84 mg/dL 35-149 [facility] Comment on above: TRIG ATP III CLASSIF ICATION TRIG less than 150 mg/dL Normal TRIG 150-199 mg/dL Borderline high TRIG 200-500 mg/dL High TRIG greater than 500 mg/dL Very high Standard traceable to the Center for Disease Conrtrol and Prevention (CDC) test method. ACETAMINOPHENon 05-06-2022 Acetaminophen [Mass/Vol] ug/mL Critically low 10.0-30.0 [facility] Comment on above: Performed By: #### C BC #### [facility] [address] [place] [address] Dr. Surendra Yip CBC AUTO DIFFon 05-06-2022 BASO # 0.1 103/ul Normal 0.0-0.1 [facility] Comment on above: Performed By: #### C BC #### [facility] [address] [place] [address] Dr. Surendra Yip Basophils/100 WBC (Bld) 0.6 % Normal 0.2-2.0 [facility] Comment on above: Performed By: #### C BC #### [facility] [address] [place] [address] Dr. Surendra Yip EO # 0.2 103/ul Normal 0.0-0.7 [facility] Comment on above: Performed By: #### C BC #### [facility] [address] [place] [address] Dr. Surendra Yip Eosinophils/100 WBC (Bld) 2.0 % Normal 0.9-7.0 [facility] Comment on above: Performed By: #### C BC #### [facility] [address] [place] [address] Dr. Surendra Yip Erythrocyte distribution width (RBC) [Ratio] 15.8 % Critically high 11.0-15.0 [facility] Comment on above: Performed By: #### C BC #### [facility] [address] [place] [address] Dr. Surendra Yip Hematocrit (Bld) [Volume fraction] 37.8 % Normal 36.0-48.0 [facility] Comment on above: Performed By: #### C BC #### [facility] [address] [place] [address] Dr. Surendra Yip Hemoglobin (Bld) [Mass/Vol] 11.7 g/dL Critically low 12.0-16.0 [facility] Comment on above: Performed By: #### C BC #### [facility] [address] [place] [address] Dr. Surendra Yip IG # 0.03 10e3/ul Normal 0.00-0.03 [facility] Comment on above: Performed By: #### C BC #### [facility] [address] [place] [address] Dr. Surendra Yip IG % 0.4 % Normal 0.0-0.5 [facility] Comment on above: Performed By: #### C BC #### [facility] [address] [place] [address] Dr. Surendra Yip LYMPH # 2.1 103/ul Normal 1.2-3.8 [facility] Comment on above: Performed By: #### C BC #### [facility] [address] [place] [address] Dr. Surendra Yip Lymphocytes/100 WBC (Bld) 26.8 % Normal 20.5-60.0 [facility] Comment on above: Performed By: #### C BC #### [facility] [address] [place] [address] Dr. Surendra Yip MANUAL DIFF REQ NO Normal [facility] Comment on above: Performed By: #### C BC #### [facility] [address] [place] [address] Dr. Surendra Yip MCH (RBC) [Entitic mass] 23.2 pg Critically low 26.7-34.0 [facility] Comment on above: Performed By: #### C BC #### [facility] [address] [place] [address] Dr. Surendra Yip MCHC (RBC) [Mass/Vol] 31.0 g/dL Normal 29.9-35.2 [facility] Comment on above: Performed By: #### C BC #### [facility] [address] [place] [address] Dr. Surendra Yip MCV (RBC) [Entitic vol] 74.9 fL Critically low 81.0-99.0 [facility] Comment on above: Performed By: #### C BC #### [facility] [address] [place] [address] Dr. Surendra Yip MONO # 0.7 103/ul Normal 0.3-0.8 [facility] Comment on above: Performed By: #### C BC #### [facility] [address] [place] [address] Dr. Surendra Yip Monocytes/100 WBC (Bld) 9.2 % Normal 1.7-12.0 [facility] Comment on above: Performed By: #### C BC #### [facility] [address] [place] [address] Dr. Surendra Yip NEUT # 4.8 103/ul Normal 1.4-6.5 [facility] Comment on above: Performed By: #### C BC #### [facility] [address] [place] [address] Dr. Surendra Yip Neutrophils/100 WBC (Bld) 61.0 % Normal 43.0-75.0 [facility] Comment on above: Performed By: #### C BC #### [facility] [address] [place] [address] Dr. Surendra Yip Platelet mean volume (Bld) [Entitic vol] 9.1 fL Critically low 9.5-13.5 [facility] Comment on above: Performed By: #### C BC #### [facility] [address] [place] [address] Dr. Surendra Yip PLT 373 103/ul Normal 150-450 [facility] Comment on above: Performed By: #### C BC #### [facility] [address] [place] [address] Dr. Surendra Yip RBC 5.05 106/ul Normal 4.20-5.40 [facility] Comment on above: Performed By: #### C BC #### [facility] [address] [place] [address] Dr. Surendra Yip WBC 7.9 103/ul Normal 4.0-11.0 [facility] Comment on above: Performed By: #### C BC #### [facility] [address] [place] [address] Dr. Surendra Yip Covid-19 PCR ([facility])on SARS-CoV-2 (COVID-19) RNA REID+probe Ql (Unsp spec) Not detected Normal NOT DETECTED [facility] Comment on above: Result Comment: When diagnostic testing is negative, the possibility of a false negative should be considered in the context of a patient's recent exposures and the presence of clinical signs and symptoms consistent with SARS-CoV-2. This test is not yet approved or cleared by the [place] FDA. When there are no FDA-approved or cleared tests available, and other criteria are met, FDA can make tests available under an emergency access mechanism called an Emergency Use Authorization (EUA). The EUA for this test is supported by the [employer] of Health and Human Service's declaration that circumstances exist to justify the emergency use of in vitro diagnostics for the detection and/or diagnosis of the virus that causes COVID-19. This EUA will remain in effect for the duration of the COVID-19 declaration justifying emergency of IVDs, unless it is terminated or revoked by the FDA (after which the test may no longer be used). Performed By: #### C BC #### [facility] [address] [place] [address] Dr. Surendra Yip DRUG SCREEN RAPID (URINE)on 05-06-2022 AMP Negative Normal NEGATIVE [facility] Comment on above: Performed By: #### E RUR, DRUGRPD, UMICRO, PREGU #### [facility] [address] [place] [address] Dr. Surendra Yip BAR Negative Normal NEGATIVE [facility] Comment on above: Performed By: #### E RUR, DRUGRPD, UMICRO, PREGU #### [facility] [address] [place] [address] Dr. Surendra Yip BUP Negative Normal NEGATIVE [facility] Comment on above: Performed By: #### E RUR, DRUGRPD, UMICRO, PREGU #### [facility] [address] [place] [address] Dr. Surendra Yip BZO Negative Normal NEGATIVE [facility] Comment on above: Performed By: #### E RUR, DRUGRPD, UMICRO, PREGU #### [facility] [address] [place] [address] Dr. Surendra Yip IRAIDA Negative Normal NEGATIVE [facility] Comment on above: Performed By: #### E RUR, DRUGRPD, UMICRO, PREGU #### [facility] [address] [place] [address] Dr. Surendra Yip CUT-OFFS SEE BELOW Normal [facility] Comment on above: Result Comment: AMP (Amphetamine): 500ng/mL, BAR (Barbituates): 200 ng/mL, BZO (Benzodiazepines): 150 ng/mL, BUP (Buprenorphine): 10 ng/mL, IRAIDA (Cocaine): 150 ng/mL, mAMP (Methamphetamine): 500 ng/mL, MTD (Methadone): 200 ng/mL, OPI (Opiates): 100 ng/mL, OXY (Oxycodone): 100 ng/mL, PCP (Phencyclidine): 25 ng/mL, PPX (Propoxyphene): 300 ng/mL, THC (Cannabinoids): 50 ng/mL, TCA (Trycyclic Antidepressants): 300 ng/mL Performed By: #### E RUR, DRUGRPD, UMICRO, PREGU #### [facility] [address] [place] [address] Dr. Surendra Yip DRUG CUT HEADER DRUG CLASS TEST SYST EM CUT-OFF CONCENTRATIONS ARE FOLLOWS: Normal [facility] Comment on above: Performed By: #### E RUR, DRUGRPD, UMICRO, PREGU #### [facility] [address] [place] [address] Dr. Surendra Yip mAMP Negative Normal NEGATIVE [facility] Comment on above: Performed By: #### E RUR, DRUGRPD, UMICRO, PREGU #### [facility] [address] [place] [address] Dr. Surendra Yip MTD Negative Normal NEGATIVE [facility] Comment on above: Performed By: #### E RUR, DRUGRPD, UMICRO, PREGU #### [facility] [address] [place] [address] Dr. Surendra Yip OPI Negative Normal NEGATIVE [facility] Comment on above: Performed By: #### E RUR, DRUGRPD, UMICRO, PREGU #### [facility] [address] [place] [address] Dr. Surendra Yip OXY Negative Normal NEGATIVE [facility] Comment on above: Performed By: #### E RUR, DRUGRPD, UMICRO, PREGU #### [facility] [address] [place] [address] Dr. Surendra Yip PCP Negative Normal NEGATIVE [facility] Comment on above: Performed By: #### E RUR, DRUGRPD, UMICRO, PREGU #### [facility] [address] [address] [address] Surendra Yip PPX Negative Normal NEGATIVE [facility] Comment on above: Performed By: #### E RUR, DRUGRPD, UMICRO, PREGU #### [facility] [address] [place] [address] Dr. Surendra Yip TCA Negative Normal NEGATIVE [facility] Comment on above: Performed By: #### E RUR, DRUGRPD, UMICRO, PREGU #### [facility] [address] [address] [address] Surendra Yip THC Negative Normal NEGATIVE [facility] Comment on above: Performed By: #### E RUR, DRUGRPD, UMICRO, PREGU #### [facility] [address] [place] [address] Dr. Surendra Yip ER URINE PROFILEon 2 Bilirubin Ql (U) Negative Normal NEGATIVE [facility] Comment on above: Performed By: #### E RUR, DRUGRPD, UMICRO, PREGU #### [facility] [address] [place] [address] Dr. Surendra Yip Clarity (U) CLEAR Normal CLEAR [facility] Comment on above: Performed By: #### E RUR, DRUGRPD, UMICRO, PREGU #### [facility] [address] [place] [address] Dr. Surendra Yip Color (U) BROWN Abnormal YELLOW [facility] Comment on above: Performed By: #### E RUR, DRUGRPD, UMICRO, PREGU #### [facility] [address] [place] [address] Dr. Surendra Yip ERUAHD A micrscopic examina tion will be performed if indicated. Normal [facility] Comment on above: Performed By: #### E RUR, DRUGRPD, UMICRO, PREGU #### [facility] [address] [place] [address] Dr. Surendra Yip Glucose Ql (U) Negative Normal NEGATIVE [facility] Comment on above: Performed By: #### E RUR, DRUGRPD, UMICRO, PREGU #### [facility] [address] [address] [address] Surendra Yip Hemoglobin Ql (U) LARGE Abnormal NEGATIVE [facility] Comment on above: Performed By: #### E RUR, DRUGRPD, UMICRO, PREGU #### [facility] [address] [address] [address] Surendra Yip Ketones Ql (U) Negative Normal NEGATIVE [facility] Comment on above: Performed By: #### E RUR, DRUGRPD, UMICRO, PREGU #### [facility] [address] [address] [address] Surendra Yip LEUKOCYTES Negative Normal NEGATIVE [facility] Comment on above: Performed By: #### E RUR, DRUGRPD, UMICRO, PREGU #### [facility] [address] [place] [address] Dr. Surendra Yip Nitrite Ql (U) Negative Normal NEGATIVE [facility] Comment on above: Performed By: #### E RUR, DRUGRPD, UMICRO, PREGU #### [facility] [address] [place] [address] Dr. Surendra Yip pH (U) 5.5 [pH] Normal 5-9 [facility] Comment on above: Performed By: #### E RUR, DRUGRPD, UMICRO, PREGU #### [facility] [address] [place] [address] Dr. Surendra Yip SPEC GRAVITY 1.030 Abnormal 1.005-<=1. 025 [facility] Comment on above: Performed By: #### E RUR, DRUGRPD, UMICRO, PREGU #### [facility] [address] [address] [address] Surendra Yip UA PROTEIN TRACE Normal NEGATIVE/ TRACE [facility] Comment on above: Performed By: #### E RUR, DRUGRPD, UMICRO, PREGU #### [facility] [address] [place] [address] Dr. Surendra Yip UR MICRO IND INDICATED Normal [facility] Comment on above: Performed By: #### E RUR, DRUGRPD, UMICRO, PREGU #### [facility] [address] [place] [address] Dr. Surendra Yip Urobilinogen Qn (U) 0.2 {Adrián'U}/dL Normal 0.2 - 1. 0 [facility] Comment on above: Performed By: #### E RUR, DRUGRPD, UMICRO, PREGU #### [facility] [address] [place] [address] Dr. Surendra Yip ETHANOL (BLD ALC)on 05-06-20 22 ALC NOTE NOTE: 80 mg/dl is e legal limit for a blood alcohol level Normal [facility] Comment on above: Performed By: #### C BC #### [facility] [address] [place] [address] Dr. Surendra Yip Ethanol [Mass/Vol] mg/dL Normal [facility] Comment on above: Performed By: #### C BC #### [facility] [address] [place] [address] Dr. Surendra Yip URon 05-06-2022 , QUAL Negative Normal NEGATIVE [facility] Comment on above: Performed By: #### E HUMPHREY DRUGGARCÍA, UMICRO, PREGU #### [facility] [address] [place] [address] Dr. Surendra Yip PROF 14(COMP METB)on 022 Albumin [Mass/Vol] 3.9 g/dL Normal 3.4-5.0 [facility] Comment on above: Performed By: #### C BC #### [facility] [address] [place] [address] Dr. Surendra Yip Albumin/Globulin [Mass ratio] 1.1 {ratio} Normal [facility] Comment on above: Performed By: #### C BC #### [facility] [address] [place] [address] Dr. Surendra Yip ALP [Catalytic activity/Vol] 70 U/L Normal 46-116 [facility] Comment on above: Performed By: #### C BC #### [facility] [address] [place] [address] Dr. Surendra Yip ALT [Catalytic activity/Vol] 20 U/L Normal 14-59 [facility] Comment on above: Performed By: #### C BC #### [facility] [address] [place] [address] Dr. Surendra Yip Anion gap [Moles/Vol] 13.0 mmol/L Normal [facility] Comment on above: Performed By: #### C BC #### [facility] [address] [address] [address] Surendra Yip AST [Catalytic activity/Vol] 14 U/L Critically low 15-37 [facility] Comment on above: Performed By: #### C BC #### [facility] [address] [place] [address] Dr. Surendra Yip Bilirubin [Mass/Vol] 0.4 mg/dL Normal 0.2-1.0 [facility] Comment on above: Performed By: #### C BC #### [facility] [address] [place] [address] Dr. Surendra Yip Calcium [Mass/Vol] 8.8 mg/dL Normal 8.5-10.1 [facility] Comment on above: Performed By: #### C BC #### [facility] [address] [place] [address] Dr. Surendra Yip Chloride [Moles/Vol] 107 mmol/L Normal 98-107 [facility] Comment on above: Performed By: #### C BC #### [facility] [address] [place] [address] Dr. Surendra Yip CO2 [Moles/Vol] 24.7 mmol/L Normal 21.0-32.0 [facility] Comment on above: Performed By: #### C BC #### [facility] [address] [place] [address] Dr. Surendra Yip Creatinine [Mass/Vol] 0.93 mg/dL Normal 0.55-1.02 [facility] Comment on above: Performed By: #### C BC #### [facility] [address] [place] [address] Dr. Surendra Yip EGFR-AF FRENCH >60 Normal >=60 [facility] Comment on above: Performed By: #### C BC #### [facility] [address] [address] [address] Surendra Yip EGFR-NON AF FRENCH >60 Normal >=60 [facility] Comment on above: Performed By: #### C BC #### [facility] [address] [address] Dr. Surendra Yip Globulin (S) [Mass/Vol] 3.7 g/dL Normal [facility] Comment on above: Performed By: #### C BC #### [facility] [address] [address] [address] Surendra Yip Glucose [Mass/Vol] 85 mg/dL Normal 74-106 [facility] Comment on above: Performed By: #### C BC #### [facility] [address] [place] [address] Dr. Surendra Yip Potassium [Moles/Vol] 3.7 mmol/L Normal 3.5-5.1 [facility] Comment on above: Performed By: #### C BC #### [facility] [address] [address] [address] Surendra Yip Protein [Mass/Vol] 7.6 g/dL Normal 6.4-8.2 [facility] Comment on above: Performed By: #### C BC #### [facility] [address] [address] [address] Surendra Yip Sodium [Moles/Vol] 141 mmol/L Normal 136-145 [facility] Comment on above: Performed By: #### C BC #### [facility] [address] [address] [address] Surendra Yip Urea nitrogen [Mass/Vol] 10.0 mg/dL Normal 6.4-19.3 [facility] Comment on above: Performed By: #### C BC #### [facility] [address] [address] [address] Surendra Yip Urea nitrogen/Creatinine [Mass ratio] 10.8 mg/mg Normal [facility] Comment on above: Performed By: #### C BC #### [facility] [address] [place] [address] Dr. Surendra Yip SALICYLATEon 05-06-2022 SALICYLATE <2.8 Normal <=19.9 [facility] Comment on above: Performed By: #### C BC #### [facility] [address] [place] [address] Dr. Surendra Yip URINE MICROSCOPIC ONLYon BACTERIA NONE SEEN Normal NONE SEEN [facility] Comment on above: Performed By: #### E RUR, DRUGRPD, UMICRO, PREGU #### [facility] [address] [place] [address] Dr. Surendra Yip Bacteria identified Cx Nom (U) NOT INDICATED Normal [facility] Comment on above: Performed By: #### E RUR, DRUGRPD, UMICRO, PREGU #### [facility] [address] [place] [address] Dr. Surendra Ypi CAST NONE SEEN Normal NONE SEEN [facility] Comment on above: Performed By: #### E RUR, DRUGRPD, UMICRO, PREGU #### [facility] [address] [place] [address] Dr. Surendra Yip Crystals LM Nom (Urine sed) NONE SEEN Normal NONE SEEN [facility] Comment on above: Performed By: #### E RUR, DRUGRPD, UMICRO, PREGU #### [facility] [address] [place] [address] Dr. Surendra Yip Epithelial cells LM Ql (Urine sed) RARE Normal NONE SEEN /RARE [facility] Comment on above: Performed By: #### E RUR, DRUGRPD, UMICRO, PREGU #### [facility] [address] [place] [address] Dr. Surendra Yip MUCOUS NONE SEEN Normal NONE SEEN [facility] Comment on above: Performed By: #### E RUR, DRUGRPD, UMICRO, PREGU #### [facility] [address] [place] [address] Dr. Surendra Yip RBC 50-75 Abnormal 0-2 [facility] Comment on above: Performed By: #### E RUR, DRUGRPD, UMICRO, PREGU #### [facility] [address] [address] [address] Surendra Yip WBC 2-5 Abnormal NONE SEEN [facility] Comment on above: Performed By: #### E RUR, DRUGRPD, UMICRO, PREGU #### [facility] [address] [address] [address] Surendra Yip Urine culture routineOrdered By: Rey Stroud on 04-13-2022 Bacteria identified Cx Nom (U) Escherichia coli [facility] Automated erythrocytes count in urine sediment (number/area)Ordered By: Rey Stroud on 04-10-2022 RBC Auto (Urine sed) [#/Area] Innumerable [HPF] 0-4 [facility] Automated leukocytes count i n urine sediment (number/area)Ordered By: Rey Stroud on 04-10-2022 WBC Auto (Urine sed) [#/Area] 10-19 [HPF] 0-4 [facility] Basophils Auto (Bld) [#/Vol] Ordered By: Lc Parjapati on 04-10-2022 Basophils (Bld) [#/Vol] 0.1 10*3/uL 0.0-0.2 [facility] Basophils/100 WBC Auto (Bld) Ordered By: Lc Prajapati on 04-10-2022 Basophils/100 WBC (Bld) 0.7 % . [facility] Bilirubin Auto test strip Ql (U)Ordered By: Rey Stroud on 04-10-2022 Bilirubin Ql (U) Negative Negative [facility] Blood hemoglobin measurement (mass/volume)Ordered By: Lc Prajapati on 04-10-2022 Hemoglobin (Bld) [Mass/Vol] 12.0 g/dL 11.8-15.4 [facility] Blood leukocytes automated c ount (number/volume)Ordered By: Lc Prajapati on 04-10-2022 WBC (Bld) [#/Vol] 9.9 10*3/uL 4.5-11.0 [facility] Body fluid albumin measureme nt (mass/volume)Ordered By: Rey Stroud on 04-10-2022 Albumin (Body fld) [Mass/Vol] 3.6 g/dL 3.2-5.5 [facility] Creatinine and Glomerular fi ltration rate.predicted panel (S/P/Bld)Ordered By: Rey Stroud on 04-10-2022 Creatinine [Mass/Vol] 0.82 mg/dL 0.44-1.03 [facility] Eosinophils Auto (Bld) [#/Vo l]Ordered By: Lc rPajapati on 04-10-2022 Eosinophils (Bld) [#/Vol] 0.1 10*3/uL 0.0-0.45 [facility] Eosinophils/100 WBC Auto (Bl d)Ordered By: Lc Prajapati on 04-10-2022 Eosinophils/100 WBC (Bld) 1.1 % . [facility] Erythrocyte distribution wid th Auto (RBC) [Ratio]Ordered By: Lc Prajapati on 04-10-2022 Erythrocyte distribution width (RBC) [Ratio] 16.5 % 11.9-15.3 [facility] Estimated glomerular filtrat ion rate (GFR) non- AmericanOrdered By: Rey Stroud on 04-10-2022 GFR/1.73 sq M.predicted among non-blacks MDRD (S/P/Bld) [Vol rate/Area] > 60 mL/Min [facility] Globulin Calc (S) [Mass/Vol] Ordered By: Rey Stroud on 04-10-2022 Globulin (S) [Mass/Vol] 3.0 g/dL [facility] Glucose Glucometer (BldC) [M ass/Vol]Ordered By: Lc Prajapati on 04-10-2022 Glucose [Mass/Vol] 85 mg/dL [facility] Comment on above: Random Glucose Refer ence Range is dependent on time and content of last meal. Glucose of more than 200 mg/dL in a nonstressed, ambulatory subject supports the diagnosis of Diabetes Mellitus. HCG ( test) IA.rapi d Ql (U)Ordered By: Rey Stroud on 04-10-2022 HCG ( test) Ql (U) Negative [facility] Hematocrit Auto (Bld) [Volum e fraction]Ordered By: Lc Prajapati on 04-10-2022 Hematocrit (Bld) [Volume fraction] 37.0 % 34.0-46.4 [facility] Ketones Auto test strip (U) [Mass/Vol]Ordered By: Rey Stroud on 04-10-2022 Ketones (U) [Mass/Vol] Negative Negative Fi relaReplaced by [facility] - Chemistry and C hemistry - challengeOrdered By: Lc Prajapati on 04-10-2022 AST [Catalytic activity/Vol] 20 U/L 10-42 [facility] Laboratory - Hematology and Cell countsOrdered By: Lc Prajapati on 04-10-2022 Nucleated RBC/100 WBC (Bld) [Ratio] 0.0 % 0-0.5 [facility] - UrinalysisOrder ed By: Rey Stroud on 04-10-2022 Hyaline casts LM Ql (Urine sed) 0-8 [LPF] 0-8 [facility] Lymphocytes Auto (Bld) [#/Vo l]Ordered By: Lc Prajapati on 04-10-2022 Lymphocytes (Bld) [#/Vol] 1.5 10*3/uL 1.00-4.8 [facility] Lymphocytes/100 WBC Auto (Bl d)Ordered By: Lc Prajapati on 04-10-2022 Lymphocytes/100 WBC (Bld) 15.1 % . [facility] MCH Auto (RBC) [Entitic mass ]Ordered By: Lc Prajapati on 04-10-2022 MCH (RBC) [Entitic mass] 23.5 pg 24.7-34.3 [facility] MCHC Auto (RBC) [Mass/Vol]Or dered By: Lc Prajapati on 04-10-2022 MCHC (RBC) [Mass/Vol] 32.4 g/dL 32.0-35.0 [facility] MCV Auto (RBC) [Entitic vol] Ordered By: Lc Prajapati on 04-10-2022 MCV (RBC) [Entitic vol] 72.7 fL 80-100 [facility] Monocytes Auto (Bld) [#/Vol] Ordered By: Lc Prajapati on 04-10-2022 Monocytes (Bld) [#/Vol] 0.8 10*3/uL 0.0-0.8 [facility] Monocytes/100 WBC Auto (Bld) Ordered By: Lc Prajapati on 04-10-2022 Monocytes/100 WBC (Bld) 8.1 % . [facility] Neutrophils Auto (Bld) [#/Vo l]Ordered By: Lc Prajapati on 04-10-2022 Neutrophils (Bld) [#/Vol] 7.5 10*3/uL 1.8-7.7 [facility] Neutrophils/100 WBC Auto (Bl d)Ordered By: Lc Prajapati on 04-10-2022 Neutrophils/100 WBC (Bld) 75.0 % . [facility] No Panel InformationOrdered By: Rey Storud on 04-10-2022 Estimated GFR () > 60 mL/Min [facility] Comment on above: GFR estimated refere nce range: According to KDOQI guidelines, <60 ml/min/1.73m2 is sufficient to diagnose a patient with chronic kidney disease. Pharmacy Creatinine Clearance (Chem 110.46 [facility] Platelet mean volume Auto (B ld) [Entitic vol]Ordered By: Lc Prajapati on 04-10-2022 Platelet mean volume (Bld) [Entitic vol] 7.4 fL 6.3-10.7 [facility] Platelets Auto (Bld) [#/Vol] Ordered By: Lc Prajapati on 04-10-2022 Platelets (Bld) [#/Vol] 406 10*3/uL 150-450 [facility] Protein Auto test strip (U) [Mass/Vol]Ordered By: Rey Stroud on 04-10-2022 Protein (U) [Mass/Vol] Trace mg/dL Negative F [facility] Protein [Mass/volume] in Ser um or PlasmaOrdered By: Rey Stroud on 04-10-2022 Protein [Mass/Vol] 6.6 g/dL 6.1-7.9 [facility] RBC Auto (Bld) [#/Vol]Ordere d By: Lc Prajapati on 04-10-2022 RBC (Bld) [#/Vol] 5.09 10*6/uL 3.60-5.00 [facility] Serum or plasma alanine osuna otransferase measurement without P-5'-P (enzymatic activiOrdered By: Lc Prajapati on 04-10-2022 ALT No additional P-5'-P [Catalytic activity/Vol] 19 U/L 10-60 [facility] Serum or plasma albumin/glob ulin mass ratioOrdered By: Rey Stroud on 04-10-2022 Albumin/Globulin [Mass ratio] 1.2 {ratio} [facility] Serum or plasma alkaline eliazar sphatase measurement (enzymatic activity/volume)Ordered By: Lc Prajapati on 04-10-2022 ALP [Catalytic activity/Vol] 67 U/L 32-92 [facility] Serum or plasma calcium lenny urement (mass/volume)Ordered By: Rey Stroud on 04-10-2022 Calcium [Mass/Vol] 8.5 mg/dL 8.2-10.2 [facility] Serum or plasma chloride val surement (moles/volume)Ordered By: Rey Stroud on 04-10-2022 Chloride [Moles/Vol] 105 mmol/L 95-114 [facility] Serum or plasma glucose lenny urement (mass/volume)Ordered By: Rey Stroud on 04-10-2022 Glucose [Mass/Vol] 95 mg/dL 70-100 [facility] Comment on above: ADA recommended refe rence range Random Glucose Reference Range is dependent on time and content of last meal. Glucose of more than 200 mg/dL in a nonstressed, ambulatory subject supports the diagnosis of Diabetes Mellitus. Serum or plasma potassium me asurement (moles/volume)Ordered By: Lc Prajapati on 04-10-2022 Potassium [Moles/Vol] 4.1 mmol/L 3.5-5.1 [facility] Serum or plasma sodium measu rement (moles/volume)Ordered By: Rey Stroud on 04-10-2022 Sodium [Moles/Vol] 132 mmol/L 136-146 [facility] Serum or plasma total biliru bin measurement (mass/volume)Ordered By: Lc Prajapati on 04-10-2022 Bilirubin [Mass/Vol] 0.2 mg/dL 0.3-1.2 [facility] Serum or plasma total carbon dioxide measurement (moles/volume)Ordered By: Rey Stroud on 04-10-2022 CO2 [Moles/Vol] 23.9 mmol/L 22.0-30.0 [facility] Serum or plasma urea nitroge n measurement (mass/volume)Ordered By: Rey Stroud on 04-10-2022 Urea nitrogen [Mass/Vol] 12 mg/dL 9-23 [facility] Squamous epithelial cells de tection in urine sediment by light microscopyOrdered By: Rey Stroud on 04-10-2022 Epithelial cells.squamous LM Ql (Urine sed) 3-4 [HPF] 0-2 [facility] Urine appearanceOrdered By: Rey Stroud on 04-10-2022 Appearance (U) Cloudy Clear [facility] Urine bacteria detection by automated methodOrdered By: Rey Stroud on 04-10-2022 Bacteria Auto Ql (U) 2+ None Seen [facility] Urine colorOrdered By: Rey Stroud on 04-10-2022 Color (U) [place] Yellow [facility] Urine glucose measurement by automated test strip (mass/volume)Ordered By: Rey Stroud on 04-10-2022 Glucose Auto test strip (U) [Mass/Vol] Normal mg/dL Normal [facility] Urine hemoglobin detection b y automated test stripOrdered By: Rey Stroud on 04-10-2022 Hemoglobin Auto test strip Ql (U) 3+ Negative [facility] Urine leukocyte esterase det ection by automated test stripOrdered By: Rey Stroud on 04-10-2022 Leukocyte esterase Auto test strip Ql (U) 1+ Negative [facility] Urine nitrite detection by a utomated test stripOrdered By: Rey Stroud on 04-10-2022 Nitrite Auto test strip Ql (U) Negative Negative [facility] Urobilinogen Auto test strip (U) [Mass/Vol]Ordered By: Rey Stroud on 04-10-2022 Urobilinogen (U) [Mass/Vol] Normal mg/dL Normal [facility] Yeast detection in urine sed iment by light microscopyOrdered By: Rey Stroud on 04-10-2022 Yeast LM Ql (Urine sed) 2+ [HPF] None Seen [facility] pH Auto test strip (U)Ordere d By: Rey Stroud on 04-10-2022 pH (U) 1.030 [pH] 1.001-1.03 0 [facility] pH (U) 5.5 [pH] 5.0-9.0 [facility] Vital Signs Date Time Vital Sign Value Performing Clinician Faci lity 07-18-2024 17:31-0400 Diastolic blood pressure 83 mm[Hg] PHYSICIAN NO [facility] 07-18-2024 17:31-0400 Heart rate 56 /min PHYSICIAN NO [facility] 07-18-2024 17:31-0400 Respiratory rate 18 /min PHYSICIAN NO [facility] 07-18-2024 17:31-0400 SaO2% (BldA) [Mass fraction] 95 % PHYSICIAN NO [facility] 07-18-2024 17:31-0400 Systolic blood pressure 136 mm[Hg] PHYSICIAN NO [facility] 07-18-2024 16:19-0400 Body height 157.48 cm PHYSICIAN NO [facility] 07-18-2024 16:19-0400 Body temperature 98.3 [degF] PHYSICIAN NO [facility] 07-18-2024 16:19-0400 Body weight 90.71 kg PHYSICIAN NO [facility] 05-20-2024 10:08-0400 Body height 162.56 cm [employer]AB[employer]JOT [employer] Work Phone: [facility] 05-20-2024 10:08-0400 Body mass index (BMI) [Ratio] 30.6 kg/m2 [employer]IC[employer]UCATION IN[employer]CTOR [employer] Work Phone: [facility] 05-20-2024 10:08-0400 Body temperature 97.6 [degF] PRABHJOT [employer] Work Phone: [facility] 05-20-2024 10:08-0400 Body weight 80.99 kg AGRIC[employer]URAL EDUCATION IN[employer]CTOR [employer] Work Phone: [facility] 05-20-2024 10:08-0400 Diastolic blood pressure 81 mm[Hg] AGRICULTURAL EDUCATION INSTRUCTOR Samra Ralph - [facility] Work Phone: [facility] 05-20-2024 10:08-0400 Heart rate 88 /min AGRICULTURAL EDUCATION INSTRUCTOR Samra Ralph - UC Work Phone: [facility] 05-20-2024 10:08-0400 Respiratory rate 18 /min AGRICULTURAL EDUCATION INSTRUCTOR Samra Ralph - UC Work Phone: [facility] 05-20-2024 10:08-0400 SaO2% (BldA) [Mass fraction] 96 % AGRICULTURAL EDUCATION INSTRUCTOR Samra Ralph - UC Work Phone: [facility] 05-20-2024 10:08-0400 Systolic blood pressure 125 mm[Hg] AGRICULTURAL EDUCATION INSTRUCTOR Samra Ralph - UC Work Phone: [facility] 06-28-2022 07:30-0400 Body temperature 98.1 [degF] PHYSICIAN NO [facility] 06-28-2022 07:30-0400 Diastolic blood pressure 66 mm[Hg] PHYSICIAN NO [facility] 06-28-2022 07:30-0400 Heart rate 70 /min PHYSICIAN NO [facility] 06-28-2022 07:30-0400 Respiratory rate 16 /min PHYSICIAN NO [facility] 06-28-2022 07:30-0400 SaO2% (BldA) [Mass fraction] 98 % PHYSICIAN NO [facility] 06-28-2022 07:30-0400 Systolic blood pressure 102 mm[Hg] PHYSICIAN NO [facility] 06-25-2022 00:00-0400 Body height 148.59 cm PHYSICIAN NO [facility] 06-25-2022 00:00-0400 Body weight 97.52 kg PHYSICIAN NO [facility] 05-13-2022 07:30-0400 Body temperature 97.9 [degF] PHYSICIAN NO [facility] 05-13-2022 07:30-0400 Diastolic blood pressure 66 mm[Hg] PHYSICIAN NO [facility] 05-13-2022 07:30-0400 Heart rate 61 /min PHYSICIAN NO [facility] 05-13-2022 07:30-0400 Respiratory rate 16 /min PHYSICIAN NO [facility] 05-13-2022 07:30-0400 SaO2% (BldA) [Mass fraction] 100 % PHYSICIAN NO [facility] 05-13-2022 07:30-0400 Systolic blood pressure 98 mm[Hg] PHYSICIAN NO [facility] 05-11-2022 09:00-0400 Body weight 92.07 kg PHYSICIAN NO [facility] 05-07-2022 05:51-0400 Body height 147.32 cm PHYSICIAN NO [facility] 04-10-2022 21:19-0400 Heart rate 90 /min PHYSICIAN NO [facility] 04-10-2022 21:13-0400 Diastolic blood pressure 75 mm[Hg] PHYSICIAN NO [facility] 04-10-2022 21:13-0400 Respiratory rate 18 /min PHYSICIAN NO [facility] 04-10-2022 21:13-0400 SaO2% (BldA) [Mass fraction] 98 % PHYSICIAN NO [facility] 04-10-2022 21:13-0400 Systolic blood pressure 96 mm[Hg] PHYSICIAN NO [facility] 04-10-2022 19:34-0400 Body height 147.32 cm PHYSICIAN NO [facility] 04-10-2022 19:34-0400 Body mass index (BMI) [Percentile] Per age and sex 98.7 % PHYSICIAN NO [facility] 04-10-2022 19:34-0400 Body mass index (BMI) [Ratio] 41.5 kg/m2 PHYSICIAN NO [facility] 04-10-2022 19:34-0400 Body temperature 99.1 [degF] PHYSICIAN NO [facility] 04-10-2022 19:34-0400 Body weight 90.26 kg PHYSICIAN NO [facility] Encounters Encounter Date Encounter Type Care Provider Facility Start: 11-01-2024 ambulatory [employer]OR Elizabeth L Rajendra Facil ity:[facility] Start: 08-24-2024 End: 08-27-2024 [facility]ulatory [facility]ER [facility] Start: 07-18-2024 End: 07-18-2024 Emergency department patient visit PHYSICIAN NO [facility] Work Phone: Start: 05-20-2024 End: 05-20-2024 Patient encounter procedure AGRIC[employer] EDUCATION INSTRUCTOR Samra Rosas - Work Phone: [facility] Work Phone: Start: 05-20-2024 End: 05-20-2024 ambulatory Samra Barragan [facility] Work Phone: Start: 05-20-2024 End: 05-20-2024 Departed Referred AGRICULTURAL EDUCATION INSTRUCTOR Samra Ferrellb - Work Phone: [facility] [place] Work Phone: Start: 04-13-2024 End: 04-13-2024 ambulatory Jayne Kirkpatrick RN [facility] Start: 03-30-2024 End: 04-02-2024 ambulatory UNKNOWN PROVIDER Facility:[facility] Start: 03-02-2024 ambulatory Elizabeth L Rajendra Facility: [facility] Start: 03-02-2024 End: 03-02-2024 Lab Drop off Elizabeth L Rajendra [facility] Start: 02-17-2024 End: 02-18-2024 ambulatory Elizabeth L Rajendra Facility:[facility] [place] [facility] Start: 06-24-2022 End: 06-28-2022 Evaluation and management of inpatient PHYSICIAN NO [facility] Start: 06-24-2022 End: 06-25-2022 ambulatory MARINO PRITCHETT Facility: Start: 05-07-2022 End: 05-13-2022 Evaluation and management of inpatient PHYSICIAN NO [facility] Start: 05-06-2022 End: 05-07-2022 ambulatory JAMEL BAILEY Facility: Start: 04-10-2022 End: 04-10-2022 Emergency department patient visit PHYSICIAN NO FAMILY [facility] Procedures Date Procedure Procedure Detail Performing Clinician Start: 07-18-2024 Trichomonas vaginali s detection PHYSICIAN NO FAMILY Start: 05-20-2024 Bacteria identified in Urine by Culture PHYSICIAN NO FAMILY Urine culture PHYSICIAN NO F AMILY Plan of Treatment Date Care Activity Detail Author Start: 2052 Shingles (RZV) Vaccine (1 of 2) Shingles (RZV) Vaccine (1 of 2) [facility] Start: 07-18-2024 Urine culture [facility] Start: 07-18-2024 [facility] Start: 07-18-2024 Bacteria identified in Urine by Culture Urine Culture [facility] Start: 07-18-2024 Genital Culture Genital Culture [facility] Start: 07-04-2024 Influenza vaccination Influenza Vaccine (#1) [facility] Start: 06-29-2024 End: 06-29-2024 Patient encounter procedure 06/29/2024 2:00 PM EDT Office Visit [facility] [address] [place] [address] Felicitas Osman MD [address] [place] [address] [place] [address] [facility] Start: 05-20-2024 Bacteria identified in Urine by Culture [facility] Start: 05-20-2024 [facility] Start: 2023 Screening for malignant neoplasm of cervix Pap Smear [facility] Start: 06-04-2023 COVID-19 Vaccine ( season) COVID-19 Vaccine ( season) [facility] Start: 06-28-2022 [facility] Work Phone: Start: 06-25-2022 Hospital admission [facility] Work Phone: Start: 06-25-2022 [facility] Work Phone: Start: 05-13-2022 [facility] Work Phone: Start: 05-07-2022 Hospital admission [facility] Work Phone: Start: 04-10-2022 Bacteria identified in Urine by Culture Urine Culture [facility] Start: 2021 Hepatitis A (HAV) Vaccine (optional start 19+ years) Hepatitis A (HAV) Vaccine (optional start 19+ years) [facility] Start: 2021 Hepatitis B vaccination Hepatitis B (HBV) Vaccine (1 of 3 - 19+ 3-dose series) [facility] Start: 2020 Hepatitis C screening Hepatitis C Antibody [facility] Start: 2020 Screening for Chlamydia trachomatis STI Screening (Age 18-24) [facility] Start: 2020 Tetanus + diphtheria + acellular pertussis vaccine (product) Tdap Booster [facility] Start: 2018 Meningococcal B (Bexsero,OMV) Vaccine (Optional,16-23 years) Meningococcal B (Bexsero,OMV) Vaccine (Optional,16-23 years) [facility] Start: 2017 HIV screening HIV Test [facility] Start: 2017 Vaccination for human papillomavirus HPV Vaccine (1 - 3-dose series) [facility] Alanine aminotransfe rase [Enzymatic activity/volume] in Serum or Plasma by No addition of P-5'-P [facility] Work Phone: Alkaline phosphatase [Enzymatic activity/volume] in Serum or Plasma [facility] Work Phone: Aspartate aminotrans ferase [Enzymatic activity/volume] in Serum or Plasma [facility] Work Phone: Atopobium vaginae DN A [Presence] in Vaginal fluid by REID with probe detection [facility] Bacteria identified in Genital specimen by Aerobe culture [facility] Bacteria identified in Urine by Culture [facility] Work Phone: Bacterial vaginosis associated bacterium 2 DNA [Presence] in Vaginal fluid by REID with probe detection [facility] Bilirubin.total [Mass/volume] in Serum or Plasma [facility] [facility] Work Phone: Megasphaera sp type 1 DNA [Presence] in Vaginal fluid by REID with probe detection [facility] Patient Education [facility] Work Phone: Patient referral [facility] Work Phone: Potassium [Moles/vol ume] in Serum or Plasma [facility] Work Phone: Payers Date Payer Category Payer Self-pay [id number] 2022 Medicaid [employer] [place] [employer] [place] [id number] 2022-Present [address] [place] [address] Medicaid HMO [id number] 2022 Medicaid [id number] 2022 Private Health Insurance [id number] 2002 Unknown [id number]. 593 2002 Unknown [id number]. 593 2002 Unknown [id number] 2.16.840.1.412052.3.579.2. 727 2002 Unknown [id number] 2.16.840.1.762953.3.579.2. 727 2002 Unknown [id number] 2.16.840.1.535145.3.579.2. 727 2002 Unknown [id number] 2.16.840.1.256642.3.579.2. 727 2002 Unknown [id number] 2.16.840.1.144778.3.579.2. 732 2002 Unknown [id number] 2.16.840.1.370448.3.579.2. 732 2002 Unknown [id number] [id number]. 727 1959 Private Health Insurance [id number] Medicaid [id number] Unknown HCAP/HFA/FAP Active [id number] 2 [id number] Unknown [id number]. 531 Unknown [id number] [id number]. 531 Social History Date Type Detail Facility Start: 04-10-2022 End: 07-18-2024 Tobacco smoking status ALIS Never smoked tobacco (finding) [facility] Start: 2000 Sex Assigned At Female F [facility] Tobacco smoking status Never [facility] Start: 03-30-2024 Sex Assigned At Female F [facility] History of tobacco use Passive smoker [facility] Start: 03-30-2024 Tobacco use and exposure Smokeless tobacco non-user [facility] Start: 03-30-2024 Alcoholic beverage intake Ex-drinker (finding) [facility] Start: 03-30-2024 History of Social function [facility] Start: 03-30-2024 Gender identity Rhabzz-lt-tlpb transsexual (finding) [facility] Start: 03-30-2024 Sexual orientation Bisexual (finding ) [facility] NEGATED: Highlighted row [facility] Goals Date Patient Goal Desired Activity /State Functional Status Date Assessment Result Facility 06-28-2022 Functional status Patient at Baseline [facility] Work Phone: 06-25-2022 Functional status Functional Sta tus Comment Pt states that he has been overeating. [facility] Work Phone: 05-13-2022 Functional status Patient at Baseline [facility] Work Phone: Mental Status Date Assessment Result Facility 06-28-2022 Cognitive function Cognitive Sta tus Patient at Baseline [facility] Work Phone: 05-13-2022 Cognitive function Cognitive Sta tus Patient is Progressing Toward Baseline [facility] Work Phone: Clinical Notes 05-08-2022 to 04-13-2024 Telephone Encounter - Mariam Klein RN - 04/13/2024 9:48 AM EDTTelephone Encounter - Mariam Klein RN - 04/13/2024 9:48 AM EDTTelephone Encounter - Jayne Kirkpatrick RN - 04/13/2024 9:34 AM EDT Note Date & Type Note Facility 04-13-2024 Telephone encounter Note Situation: Patient returning call Background: Spoke with Poison Control Assessment: PC said can resume regular taking of medication Recommendation: N/A [facility] 04-13-2024 Miscellaneous Notes Situation: Patient returning call Background: Spoke with Poison Control Assessment: PC said can resume regular taking of medication Recommendation: N/A Situation: Patient took 200 mg Testosterone 1ml instead of 0.25 mL Background: See nurse triage Assessment: See nurse triage Recommendation: Patient advised to Call poison control . Pt verbalized understanding and agreed to plan of care. Routing to PCP as FYI Reason for Disposition Drug overdose and triager unable to answer question MORE THAN A DOUBLE DOSE of a prescription or fhjz-irj-xggcozj (OTC) drug Answer Assessment - Initial Assessment Questions 1. NAME of MEDICINE: What medicine(s) are you calling about? Medication Quantity Refills Start End testosterone cypionate (DEPO-TESTOSTERONE) 200 MG/ML injection 12 mL 3 03/30/2024 03/30/2025 Sig: Inject 0.25 mL into the muscle once weekly. Please throw away the remainder after opening. Route: Intramuscular Order Providers Authorizing Provider Encounter Provider Felicitas Osman MD Testosterone 0.25 mL Taking 3 mL syringe going up to 1 2. QUESTION: What is your question? (e.g., double dose of medicine, side effect) Taking over prescribed dose 3. PRESCRIBER: Who prescribed the medicine? Reason: if prescribed by specialist, call should be referred to that group. Dr. Osman 4. SYMPTOMS: Do you have any symptoms? If Yes, ask: What symptoms are you having? How bad are the symptoms (e.g., mild, moderate, severe) Denies 5. : Is there any chance that you are ? When was your last menstrual period? Protocols used: Medication Question Call-A-AH, Rqrzukusy-[id number] documented in this encounter [facility] 04-13-2024 Telephone encounter Note Situation: Patient took 200 mg Testosterone 1ml instead of 0.25 mL Background: See nurse triage Assessment: See nurse triage Recommendation: Patient advised to Call poison control . Pt verbalized understanding and agreed to plan of care. Routing to PCP as FYI Reason for Disposition Drug overdose and triager unable to answer question MORE THAN A DOUBLE DOSE of a prescription or kyip-vbz-yftvjbg (OTC) drug Answer Assessment - Initial Assessment Questions 1. NAME of MEDICINE: What medicine(s) are you calling about? Medication Quantity Refills Start End testosterone cypionate (DEPO-TESTOSTERONE) 200 MG/ML injection 12 mL 3 03/30/2024 03/30/2025 Sig: Inject 0.25 mL into the muscle once weekly. Please throw away the remainder after opening. Route: Intramuscular Order Providers Authorizing Provider Encounter Provider Felicitas Osman MD Testosterone 0.25 mL Taking 3 mL syringe going up to 1 2. QUESTION: What is your question? (e.g., double dose of medicine, side effect) Taking over prescribed dose 3. PRESCRIBER: Who prescribed the medicine? Reason: if prescribed by specialist, call should be referred to that group. Dr. Osman 4. SYMPTOMS: Do you have any symptoms? If Yes, ask: What symptoms are you having? How bad are the symptoms (e.g., mild, moderate, severe) Denies 5. : Is there any chance that you are ? When was your last menstrual period? Protocols used: Medication Question Call-A-AH, [id number] [facility] 03-02-2024 Evaluation + Plan note Diagnostic Tests PendingPAP IG w/rflx HPV 03/02/24 [facility] 06-28-2022 Discharge summary Note Date/Time June 28, 2022 10:43am [facility] [address] [place] [address] Discharge Summary Signed Patient: Mahin Gallagher MR#: [id number] : 2000 Acct:[id number] Age/Sex: 21 / F Adm Date: 2 Loc: Room: [address] [place] [address]: Luis Polk MD Copies to: Luis Polk MD NO FAMILY PHYSICIAN~ Providers Date of Discharge: 06/28/22 Discharging Provider: Luis Polk Primary Care Provider: PHYSICIAN NO FAMILY Discharge Diagnosis (1) Bipolar disorder, unspecified: (2) Major depressive disorder, recurrent: (3) Lightheadedness: (4) Suicidal ideation: (5) Self-harming behavior: Final Diagnosis Final Discharge Diagnosis: Unspecified bipolar disorder Summary Hospital Course Hospital course: According to admission note:Mahin (he/him) is a 21 year old transgender male who presents with suicidal thoughts since Wednesday. He denies having a plan, butsays he wasn't feeling the best. He reports that he hadn't taken his medications since Wednesday due to losing them, and believes the ideation began after. He was taking Abilify, Buspar, and Lexapro since his recent admission 2 weeks ago and reports tolerating them well. He is currently concerned about his housing situation. He was recently living with a friend but is being kicked out and is not sure where else to go. He reports his relationship with his parents is okay, but living with them is not an option. He ranks his depression at a 9/10 and anxiety a 1/10. He denies any current hallucinations or suicidal ideation. Past psych history: bipolar disorder, depression, PTSD Past psychiatric hospitalizations: recently admitted two weeks ago for suicidal ideation Past suicide attempts: previously attempted overdosing, slitting wrists, and jumping in traffic. most recent attempt was 1 year ago Family psych history: father diagnosed with depression, mother diagnosed with bipolar disorder Previous medications: Abilify, Buspar, Lexapro since previous admission two weeks ago Smoking Status: no history of tobacco use Tobacco Type: n/a Substance Use Type: past marijuana use Alcohol: none Occupation: works as a cook in [employer] Living situation: was living with friend until recently being kicked out, no current plans for relocation Patient is restarted on medications. He tolerated the medication without any problems and did not report any side effects. His medications were restarted and continued he started to notice improvement of his symptoms. He gradually started to attend groups and socialize with peers. He did not exhibit any behavior concerning for suicidality during his hospital course. His sleep and appetite remain normal during his hospitalization. On the day of discharge he reported that things have improved. He denied any suicidal thoughts. He expressed interest in following up with outpatient services. He stated that he would be returning home and then living with his sister in the interim until he was able to get on his feet. Condition Condition at Discharge: Stable Status at Discharge Cognitive/behavioral status at discharge: Mental Status Exam: Appearance: grossly normal Mental Status: mental status grossly normal Mood: Euthymic mood Affect: Normal affect Speech and Movement: speech and movement normal and speech clear Attitude: cooperative Thought Process: normal Thought Content: Denied hallucinations, no homicidality and no suicidality Insight: Good Judgment: Good Functional status at discharge: independent ambulation Overall status at discharge: patient is back to baseline Time Spent with Patient Time spent providing/coordinating discharge services (# min): 30 Exam Physical Exam Vital Signs: Temp Pulse Resp BP Pulse Ox O2 Del Method 98.1 F 70 16 102/66 98 Room Air 06/28/22 07:30 06/28/22 07:30 06/28/22 07:30 06/28/22 07:30 06/28/22 07:30 06/28/22 09:00 Discharge Plan Discharge Plan Patient Disposition: Home Activity: No Activity Restriction Diet: Regular Additional Instructions: Regular Diet No Activity Restrictions Instructions: Depression, Adult ([place]), [facility] [place] Instructions Stand Alone Forms: Work/School Release Form Prescriptions: Continued buspirone 5 mg Tablet 5 mg PO BID 30 Days Qty: 60 0RF aripiprazole [Abilify] 30 mg Tablet 30 mg PO DAILY Qty: 30 0RF escitalopram oxalate 5 mg Tablet 5 mg PO QAM 30 Days Qty: 30 0RF Follow Up: [facility] Counseling Hotline [Outside] [facility] [Outside] ( manager women: (Insert date/time here) Therapy:? (insert date/time here) Intake: (Insert date/time here) Please bring a copy of your photo ID, insurance card, and proof of household income.? Psychiatry: (Insert date/time here) Group: (Insert date/time here ) ) Documented By: Luis Polk MD 06/28/221041 Signed By: <Electronically signed by Luis Polk MD> 06/28/22 1045 [facility] Work Phone: 1(585) 570-100509-24-2022 Progress note Author Luis Polk [facility] June 27, 2022 10:25am Note Date/Time June 27, 2022 10:25am [facility] [address] [place] [address] Psychiatry Progress Note Signed Patient: Mahin Gallagher MR#: [id number] : 2000 Acct:[id number] Age/Sex: 21 / F Adm Date: 2 Loc: Room: [address] [place] [address] Type : ADM IN Attending Dr: Luis Polk MD Copies to: ~ Date of Service: 06/27/2022 Subjective Subjective Narrative: Mahin (he/him) reported that he is doing fine. He reported that he slept okayovernight. He denied any current suicidal thoughts. He stated that he has not attended many groups. He denied any side effects from medication. He has been mainly isolated to his room and in bed most of the day. He is on Ambivalent about plan upon discharge, reported he will think about it today and hopefully discharge tomorrow Mental status exam: Mental Status: mental status grossly normal Mood: Normal mood Affect: Appropriate affect Speech and Movement: Speech and movements normal and speech clear Attitude: cooperative Thought Process: Normal Thought Content: Denies hallucinations, no homicidality and no suicidality Insight: Fair Judgment: Fair Impulse control: Fair Exam Physical Exam Vital Signs: Temp Pulse Resp BP Pulse Ox O2 Del Method 98.3 F 60 18 103/70 100 Room Air 06/27/22 07:30 06/27/22 07:30 06/26/22 20:00 06/27/22 07:30 06/27/22 07:30 06/27/22 07:30 Objective Labs Labs: Abnormal Labs 06/26/22 05:22 25-OH Vitamin D Total 20.1 L Assessment/Plan Assessment/Plan (1) Bipolar disorder, unspecified: Plan: Patient doing better at this time. Anticipate discharge tomorrow as patient has ambivalence today Continue current medications Discuss importance of medication compliance and potential barriers Monitor for mental status changes Monitor for suicidal behaviors, self harm (15-minute face check) Encourage psychoeducation and group participation Code(s): F31.9 - Bipolar disorder, unspecified Status: Acute (2) Major depressive disorder, recurrent: Code(s): F33.9 - Major depressive disorder, recurrent, unspecified Status: Acute (3) Lightheadedness: Code(s): R42 - Dizziness and giddiness Status: Acute (4) Suicidal ideation: Code(s): R45.851 - Suicidal ideations Status: Acute (5) Self-harming behavior: Status: Acute Documented By: Luis Polk MD 06/27/22 1023 Signed By: <Electronically signed by Luis Polk MD> 06/27/22 [facility]8 [facility] Work Phone: 1(269) 253-781009-23-2022 Progress note Author Luis Polk [facility] June 26, 2022 2:54pm Note Date/Time June 26, 2022 2:54pm [facility] [address] [place] [address] Psychiatry Progress Note Signed Patient: Mahin Gallagher MR#: [id number] : 2000 Acct:[id number] Age/Sex: 21 / F Adm Date: 2 Loc: Room: [address] [place] [address] Type : ADM IN Attending Dr: Luis Polk MD Copies to: ~ Date of Service: 06/26/2022 Subjective Subjective Narrative: Mahin (he/him) reports that he is doing fine today. He continues to provide short, few word answers during exam. He reports tolerating the medications well and denies any side effects. He reports his depression a 5/10 and anxiety a 0/10. He says he slept fine and his appetite is normal. He denies any thoughts of self harm or suicidality. Mental status exam: Mental Status: mental status grossly normal Mood: Normal mood Affect: Appropriate affect Speech and Movement: Speech and movements normal and speech clear Attitude: cooperative Thought Process: Normal Thought Content: Denies hallucinations, no homicidality and no suicidality Insight: Fair Judgment: Fair Impulse control: Fair Patient was personally seen by me on the day of the encounter. I reviewed the history and performed the chew elements of the physical examination. I formulated the plan of care and confirmed this with the medical student as notedbelow. Exam Physical Exam Vital Signs: Temp Pulse Resp BP Pulse Ox O2 Del Method 97.5 F L 61 18 100/60 98 Room Air 06/26/22 07:30 06/26/22 07:30 06/26/22 07:30 06/26/22 07:30 06/26/22 07:30 06/26/22 07:30 Objective Labs Labs: Abnormal Labs 06/26/22 05:22 25-OH Vitamin D Total 20.1 L Assessment/Plan Assessment/Plan (1) Bipolar disorder, unspecified: Plan: Patient doing better at this time. Anticipate discharge if mood remains stable possibly over the weekend Continue current medications Discuss importance of medication compliance and potential barriers Monitor for mental status changes Monitor for suicidal behaviors, self harm (15-minute face check) Encourage psychoeducation and group participation Code(s): F31.9 - Bipolar disorder, unspecified Status: Acute (2) Major depressive disorder, recurrent: Code(s): F33.9 - Major depressive disorder, recurrent, unspecified Status: Acute (3) Lightheadedness: Code(s): R42 - Dizziness and giddiness Status: Acute (4) Suicidal ideation: Code(s): R45.851 - Suicidal ideations Status: Acute (5) Self-harming behavior: Status: Acute Documented By: Luis Polk MD 06/26/22 1232 Signed By: <Electronically signed by Luis Polk MD> 06/26/22 6421 [facility] Work Phone: 1(175) 439-302509-22-2022 History and physical note Author Luis Polk [facility] June 25, 2022 12:45pm Note Date/Time June 25, 2022 12:45pm [facility] [address] [place] [address] Psychiatry H&P Signed Patient: Mahin Gallagher MR#: [id number] : 2000 Acct:[id number] Age/Sex: 21 / F Adm Date: 2 Loc: Room: [address] [place] [address] Type: ADM IN Attending Dr: Luis Polk MD Copies to: Luis Polk MD NO FAMILY PHYSICIAN~ Date of Service: 06/25/2022 HPI Narrative Narrative: Mahin (he/him) is a 21 year old transgender male who presents with suicidal thoughts since Wednesday. He denies having a plan, but says he wasn't feeling the best. He reports that he hadn't taken his medications since Wednesday due tolosing them, and believes the ideation began after. He was taking Abilify, Buspar, and Lexapro since his recent admission 2 weeks ago and reports tolerating them well. He is currently concerned about his housing situation. He was recently living with a friend but is being kicked out and is not sure where else to go. He reports his relationship with his parents is okay, but living with them is not an option. He ranks his depression at a 9/10 and anxiety a 1/10. He denies any current hallucinations or suicidal ideation. Past psych history: bipolar disorder, depression, PTSD Past psychiatric hospitalizations: recently admitted two weeks ago for suicidal ideation Past suicide attempts: previously attempted overdosing, slitting wrists, and jumping in traffic. 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 Denies depression, denies current suicidal ideation but recent suicidal thoughts, denies homicidal ideation Physical exam: Const: cooperative Nutritional Appearance: normal weight Orientation: alert, awake and oriented x3 HEENT: Head normal to inspection, hearing grossly normal bilaterally, external nose normal, face symmetric Eyes: appearance normal, both eyes and all related structures, sclerae normal Neck: normal visual inspection and full ROM Resp: normal respiratory effort, able to speak in complete sentences and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 depressed. Admitted for self-harming behavior and attempted suicide, patient confirmed today they have been missing doses of their medications for various reasons. Expressed some difficulty in getting prescriptions refilled, prohibitive costs, and difficulty maintaining a schedule. Patient was personally seen by me on the day of the encounter. I reviewed the history and performed the chew elements of the assessment. 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 Expressed frustration with medications, reduction of the aripiprazole to 10 mg, believes this is, not enough to be effective. States no issues with agitation or aggression, despite some frustrations. Reports better quality sleep and stronger appetite. Reports no suicidal ideation, homicidal ideation, hallucinations (both auditory and visual). Reports increasing anxiety when thinking about new job, no new depressive symptoms. Mental Status Exam Mental Status: semi-irritiable, no acute distress, dressed casually Mood: mentally exhausted Affect: nervous, hesitant, restricted affect Speech and Movement: clear speech, repetitive movements, rocking, no limitations on mobility Attitude: cooperative, frustrated Thought Process: linear Thought Content: depression, hopelessness, anxiety, suicidal ideations denies HI, suicidal intent, hallucinations Insight: improving Judgment: limited? ? Exam Physical Exam Vital Signs: Temp Pulse Resp BP Pulse Ox O2 Del Method 97.2 F L 69 16 106/59 L 100 Room Air 05/08/22 07:30 05/08/22 07:30 05/08/22 07:30 05/08/22 07:30 05/08/22 07:30 05/08/22 07:30 Assessment/Plan Assessment/Plan (1) Bipolar disorder, unspecified: Code(s): F31.9 - Bipolar disorder, unspecified Status: Acute Plan Patient admits to recent suicidality, suicidal ideations with hx of Bipolar Disorder and Depression, recent suicide attempt. Positive UTI, asymptomatic. Discussed effectiveness of medications and possible benefits/side effects. Continue Aripiprazole 10 mg (possibly increase to more agree with patient's reported therapeutic target of 30 mg) Continue Buspirone 5 mg Continue Cariprazine 3 mg Continue Keflex for UTI (E. Coli) Monitor for mental status changes Monitor for suicidal behaviors, self harm (15-minute face check) Encourage psychoeducation and group participation Documented By: Galindo Guajardo MD 2 2196 Signed By: <Electronically signed by Galindo Guajardo MD> 05/08/22 1008 [facility] Work Phone: Evaluation noteNo assessment information available [facility] Work Phone: [employer] note* Diagnosis Onset Date Resolution Status Bipolar disorder, unspecified acute Lightheadedness acute Major depressive disorder, recurrent acute Self-harming behavior acute Suicidal ideation acute [facility] Work Phone: Evaluation note* Diagnosis Onset Date Resolution Status Bipolar disorder, unspecified acute Lightheadedness acute Major depressive disorder, recurrent acute Self-harming behavior acute Suicidal ideation acute Bipolar disorder, unspecified acute Lightheadedness acute Major depressive disorder, recurrent acute Self-harming behavior acute Suicidal ideation acute [facility] Work Phone: Evaluation note* Diagnosis Onset Date Resolution Status UTI (urinary tract infection) acute Dysuria noneactive [facility] Work Phone: Hospital course Narrative No data available for this section [facility] Additional Instructions Labs and EKG look good today, return for worsening symptoms or concerns[facility] Hospital Discharge instructions Additional Instructions Regular Diet No Activity Restrictions[facility]: [facility] Discharge instructions No data available for this section [facility] Additional Instructions Take the antibiotic cephalexin twice a day for 7 days You may do sitz bath's home as instructed If any of your cultures grew positive we will call you Vaginal rest so nothing in the vagina for 1 to 2 weeks Follow-up with your [facility] [facility] Return to the ER for worsening pain uncontrolled bleeding high fever or any other concerns[facility]: Progress note No data available for this section [facility] Chief Complaint and Reason for Visit Chief Complaint dizziness Chief Complaint dizziness Bipolar Depression Reason for Visit Bipolar disorder, un specified Lightheadedness Major depressive disorder, recurrent Self-harming behavior Suicidal ideation Chief Complaint dizziness Bipolar Depression MDD Reason for Visit Bipolar disorder, un specified Lightheadedness Major depressive disorder, recurrent Self-harming behavior Suicidal ideation Bipolar disorder, unspecified Lightheadedness Major depressive disorder, recurrent Self-harming behavior Suicidal ideation Chief Complaint Dysuria Urinary trac t infection Poss uti Reason for Visit UTI (urinary tract i nfection) Dysuria Chief Complaint R30.0 N39.0 Poss uti personal Reason for Visit UTI (urinary tract i nfection) Dysuria Advance Directives No Advanced Directives Records Found Advance Directive Response Recorded Date/ Time Advance Directives No December 27 1:51pm Advance Directive Response Recorded Date/ Time Advance Directives No May 20, 2024 9:52am Family History Relationship Condition Age at Onset Recorded Date/T hilary mother Bipolar disorder Unknown father Major depressive disorder Unknown No Family History Records Found Relationship Condition Age at Onset Recorded Date/T hilary Not Specified Bipolar disorder Unknown father Major depressive disorder Unknown Summary Purpose Additional Source Comments Care Teams (unrecognized sec tion and content) Team Status: Inactive Member Role Status Dates PHYSICIAN NO FAMILY Primary Care Provider Active Lc Prajapati DO Emergency Provider Active Team Status: Active Member Role Status Dates PHYSICIAN NO FAMILY Primary Care Provider Active Team Status: Inactive Member Role Status Dates PHYSICIAN NO FAMILY Primary Care Provider Active Jenny Guajardo MD Admit Provider, Attending Pr jennifer Active Team Status: Inactive Member Role Status Dates PHYSICIAN NO FAMILY Primary Care Provider Active Luis Polk MD Admit Provider, Attending Provider Active Contract Mail [employer]rier Relationship Specialty Start Date End Date Felicitas Osman MD [address] [place] [address] [place] [address] PCP - General Family Medicine 03/30/24 Team Status: Inactive Member Role Status Dates Samra ARITA APRN Attending Provider Active Start: May 20, 2024 End: May 20, 2024 Team Status: Inactive Member Role Status Dates PHYSICIAN NO FAMILY Primary Care Provider Active Start: May 20, 2024 End: May 20, 2024 Samra ARITA APRN Attending Provider Active Start: May 20, 2024 End: May 20, 2024 Team Status: Inactive Member Role Status Dates Samra Rosas APRN Attending Provider Active S tart: May 20, 2024 End: May 20, 2024 Team Status: Inactive Member Role Status Dates PHYSICIAN NO FAMILY Primary Care Provider Active Start: May 20, 2024 End: May 20, 2024 Samra Rosas APRN Attending Provider Active S tart: May 20, 2024 End: May 20, 2024 Team Status: Inactive Member Role Status Dates PHYSICIAN NO FAMILY Primary Care Provider Active Start: July 18, 2024 End: July 18, 2024 Jasmin Palacios [employer] INSPECTOR- Emergency Provider Active Start: July 18, 2024 End: July 18, 2024 Goals (unrecognized section and content) Goals may be documented in a n alternate sectionGoals may be documented in an alternate section No data available for this sectionGoals may be documented in an alternate sectionGoals may be documented in an alternate section INFORMATION SOURCE (unrecogn ized section and content) DATE CREATED AUTHOR 07/05/2022 [facility] DATE CREATED AUTHOR AUTHOR'S ORGANIZ ATION 03/01/2024 [facility] DATE CREATED AUTHOR AUTHOR'S ORGANIZ ATION 03/10/2024 [facility] DATE CREATED AUTHOR AUTHOR'S ORGANIZ ATION 07/29/2024 [facility] DATE CREATED AUTHOR AUTHOR'S ORGANIZ ATION 10/19/2024 [facility] DATE CREATED AUTHOR AUTHOR'S ORGANIZ ATION 10/31/2024 [facility] FOR RECORDS PERTAINING TO PATIENTS WHO ARE OR HAVE BEEN ENROLLED IN A CHEMICAL DEPENDENCY/SUBSTANCEABUSE PROGRAM, SOME INFORMATION MAY BE OMITTED. This clinical summary was aggregated from multiple sources. Caution should be exercised in using it in the provision of clinical care. This summary normalizes information from multiple sources, and as a consequence, information in this document may materially change the coding, format and clinical context of patient data. In addition, data may be omitted in some cases. CLINICAL DECISIONS SHOULD BE BASED ON THE PRIMARY CLINICAL RECORDS. [facility] [employer] provides no warranty or guarantee of the accuracy or completeness of information in this document.
--- NOTE | 2024-11-01 12:35 | XR_ITS ---
The [address] [address] Patient Name: NIGHAT GALLAGHER MRN: [id number] date: 2000 Sex: F Assigned Patient Location: [facility] Current Patient Location: Accession/Order Number: [id number] Exam Date: 11/01/2024 12:28 Report Date: 11/03/2024 06:57 At the request of: ROSITA HDZ Procedure: XR foot LT min 3V PROCEDURE: XR foot LT min 3V HISTORY: Left Foot Pain, Left Foot Injury COMPARISON: None. FINDINGS: BONES:No fracture, acute abnormality, or significant arthropathy. Tiny corticated ossification adjacent the lateral margin of the first distal interphalangeal joint favoring sequela of remote injury. SOFT TISSUES:No visible soft tissue swelling. EFFUSION:None visible. OTHER: Negative. XR/XR foot LT min 3V IMPRESSION: 1. No acute bone abnormality or significant degenerative changes. Electronically authenticated by: INGE MCCORD Date: 11/03/2024 06:57
== END 2024-11-01 12:03 | disposition home or self-care (01) ==
PROVIDERS: PCP Nurse Practitioner; Visit Provider Nurse Practitioner
DX: M79.672 Pain in left foot (principal)
CPT/HCPCS: 73630